=== PATIENT | male | born 1940 | race Caucasian/White ===

== ENCOUNTER 2017-04-14 05:34 | Inpatient (IN) | payer MEDICARE, BC ==
[~2017-04-14] VITALS: Ht 180.3 cm; Wt 64.4 kg
[~2017-04-14 05:34] MED LIST: ALBUTEROL SULFAT4 MG; AMBIEN5 MG PO; AMLODIPINE BESY10 MG PO; ANTIVERT25 MG PO; ATORVASTATIN CA20 MG PO; ATROVENT 0.02%2.5 ML; BROVANA15 MCG/2 M; BUDESONIDE0.5 MG/2 M NEB; CLONIDINE HCL0.1 MG PO; COMBIVENT14.7 GM INH; DILTIAZEM HCL30 MG PO; FERROUS SULFAT325 M1 PO; FLOMAX0.4 MG PO; FLUCONAZOLE100 MG PO; FUROSEMIDE40 MG PO; HYDROCHLOROTHIA25 MG PO; HYDROCODONE-AP1 EACH PO; IPRATROPIU0.2 MG/1 M NEB; LORAZEPAM0.5 MG PO; MACRODANTIN100 MG PO; METOPROLOL SUCC50 MG PO; MS CONTIN15 MG PO; PANTOPRAZOLE SO40 MG PO; POTASSIUM CHLO20 ME1 PO; PREDNISONE5 MG PO; PROAIR HFA INH8.5 GM; RISPERIDONE0.5 MG PO; SINGULAIR10 MG PO; TRAZODONE HCL100 MG PO; TRAZODONE HCL50 MG PO; TYLENOL WITH C1 EACH PO; ULTRAM50 MG PO; VERAPAMIL; Z MORPHINE SULFAT; Z.0.ADVAIR 250-501 E; Z.0.ALBUTEROL0.63 MG INH; Z.0.AZOR 10-40 MG1 E; Z.0.HYDROCHLOROTHIA2 PO; Z.0.LEVAQUIN500 MG; Z.0.LUNESTA3 MG; Z.0.METOPROLOL SUCC5
[2017-04-14] MEDS ORDERED: ALBUTEROL SULF 0.083% NEB SOLN 3 ML NEB NEB STA (05:36)
[2017-04-14] MEDS ORDERED: IPRATROPIUM BROMIDE 0.02% 2.5 ML NEB NEB ONE (05:45)
[2017-04-14] MEDS ORDERED: MIRALAX17 GM PO (05:54)
[2017-04-14] MEDS ORDERED: NORCO 5-325 TA1 EACH PO (05:54)
[2017-04-14 05:58] LABS: BASOPHILS # (AUTO) 0.1 (0.0-0.1); BASOPHILS % 0.9 % (0.0-1.0); EOSINOPHILS # (AUTO) 0.6 (0.0-0.4); EOSINOPHILS % 5.4 % (0.0-6.0); HEMATOCRIT 36.5 % (38.2-49.6); HEMOGLOBIN 11.2 g/dL (14.0-18.0); LYMPHOCYTES # (AUTO) 5.3 (1.0-3.2); MEAN CORPUSCULAR HEMOGLOBIN 26.7 pg (28-32); MEAN CORPUSCULAR HGB CONC 30.7 g/dL (31-35); MEAN CORPUSCULAR VOLUME 86.9 fL (81-99); MONOCYTES # (AUTO) 1.1 (0.2-0.8); MONOCYTES % 9.8 % (4.4-11.3); NEUTROPHILS # (AUTO) 3.9 (2.1-6.9); NEUTROPHILS % 35.7 % (38.7-80.0); PLATELET COUNT 194 x10e3/uL (140-360); RED CELL DISTRIBUTION WIDTH 14.8 % (11.7-14.4)
[2017-04-14 06:14] LABS: ALANINE AMINOTRANSFERASE 12 IU/L (0-55); ALBUMIN 3.4 g/dL (3.5-5.0); ALBUMIN/GLOBULIN RATIO 0.8 (0.8-2.0); ALKALINE PHOSPHATASE 74 IU/L (40-150); BLOOD UREA NITROGEN 20 mg/dL (7-26); BUN/CREATININE RATIO 17 (6-25); CALCIUM 9.3 mg/dL (8.4-10.2); CARBON DIOXIDE 29 mmol/L (22-29); CHLORIDE 100 mmol/L (98-107); CREATINE KINASE 44 IU/L (30-200); CREATININE, SERUM 1.16 mg/dL (0.72-1.25); EST GLOMERULAR FILTRATION RATE > 60 ML/MIN (60-); GLUCOSE 95 mg/dL (74-118); SODIUM 142 mmol/L (136-145)
[2017-04-14 06:22] LABS: TROPONIN I 0.006 ng/mL (0-0.300)
[2017-04-14] MEDS ORDERED: POTASSIUM CHLORIDE 20 MEQ TAB CR PO STA (06:40)
[2017-04-14] MEDS ORDERED: MORPHINE SULFATE 2 MG/ML SYR IV STA (06:49)
--- NOTE | 2017-04-14 06:58 | Diagnostic Imaging Report ---
CHEST SINGLE (PORTABLE), 04/14/2017 5:36 AM Technique: CHEST SINGLE (PORTABLE) Comparison: 11/28/2016 Clinical history: Shortness of breath Findings: Stable portable appearance of the heart, mediastinum, lungs and pleural spaces. Impression: Limited by and portable technique and soft tissue attenuation. No significant interval change. Signed by: Dr Cat Curz MD on 04/14/2017 6:54 AM
[2017-04-14] MEDS: ALBUTEROL/IPRATROPIUM 3 ML NEB NEB SCH ×5 (07:00→23:30)
[2017-04-14] MEDS: BUDESONIDE 0.5MG/2 ML NEB NEB SCH ×2 (07:00→19:25)
[2017-04-14] MEDS ORDERED: SODIUM CHLORIDE FLUSH 10 ML SYR INJ PRN (07:00)
[2017-04-14] MEDS: HYDROCHLOROTHIAZIDE 25 MG TAB PO SCH (07:55)
[2017-04-14] MEDS: METOPROLOL SUCCINATE 50 MG TAB XL PO SCH (07:55)
[2017-04-14] MEDS: FUROSEMIDE 40 MG TAB PO SCH (07:55)
[2017-04-14] MEDS: POTASSIUM CHLORIDE 20 MEQ TAB CR PO SCH (07:55)
[2017-04-14] MEDS: CEFTRIAXONE SOD 1 GM VIAL IV SCH (08:07)
[2017-04-14] MEDS: AZITHROMYCIN 500MG/NS 250 ML 250 ML IV SCH (08:14)
[2017-04-14] MEDS: POLYETHYLENE GLYCOL 3350 17 GM PACK PO SCH (08:15)
[2017-04-14] MEDS ORDERED: AMLODIPINE BESYLATE 10 MG TAB PO SCH (09:00)
[2017-04-14] MEDS: METHYLPREDNISOLONE SOD SUCC 40 MG/ML VIAL IV SCH ×2 (12:00→17:35)
[2017-04-14] MEDS ORDERED: INFLUENZA VIRUS VAC SPLIT INJ 0.5 ML SYR IM ONE (12:45)
[2017-04-14 12:57] VITALS: BP 143/78
[2017-04-14] MEDS: HYDROCODONE/APAP 5MG-325MG TAB PO PRN ×2 (13:49→21:07)
[2017-04-14 16:14] LABS: CREATINE KINASE MB 1.7 ng/mL (0.00-5.00); TROPONIN I 0.007 ng/mL (0-0.300)
[2017-04-14] MEDS ORDERED: INFLUENZA VIRUS VAC SPLIT INJ 0.5 ML SYR IM NR (16:30)
[2017-04-14 16:56] VITALS: BP 144/76
[2017-04-14 20:00] VITALS: BP 148/66
[2017-04-14] MEDS ORDERED: TRAZODONE HCL 50 MG TAB PO SCH (21:30)
[2017-04-14] MEDS: NYSTATIN 15 GM POWDER UD BTL TOP SCH (22:20)
[2017-04-14 23:28] LABS: CREATINE KINASE MB 2.1 ng/mL (0.00-5.00); TROPONIN I 0.003 ng/mL (0-0.300)
[2017-04-14] MEDS: LORAZEPAM 0.5 MG TAB PO PRN (23:57)
[2017-04-15] VITALS: BP_SYST 110; BP_SYST 136; BP_DIAS 53; BP_DIAS 67
[2017-04-15] MEDS: METHYLPREDNISOLONE SOD SUCC 40 MG/ML VIAL IV SCH ×5 (00:19→23:55)
[2017-04-15] MEDS: ALBUTEROL/IPRATROPIUM 3 ML NEB NEB SCH ×6 (03:20→23:55)
--- NOTE | 2017-04-15 03:28 | Consultation ---
DATE OF CONSULTATION: April 14, 2017 PULMONARY MEDICINE CONSULT REFERRING PHYSICIAN: Dr. Willis REASON FOR REFERRAL: COPD with exacerbation. SUBJECTIVE: Mr. Palomares is a pleasant 77-year-old gentleman with COPD. Patient was in his usual state of health when he started experiencing short of breath. No definite sick contact. Patient was having little bit more tightness in his airways. There were also some chest pains. Patient with minor congestion only in the upper airway. symptoms were not readily improving, he elected to come to [facility] for further evaluation. Here in the emergency room, chest x-ray was showing clear lungs. BNP level was normal. Patient was treated as COPD and given antibiotics. He was thereafter admitted. Patient with well known medical history of COPD. He has additional asthmatic phenotype. We recently weaned his prednisone down to 0 mg for last few months. Patient was having bronchodilators at home. He has noninvasive ventilator equipment, home oxygen, and nebulizer. Despite all these interventions, he still came to the hospital. PAST MEDICAL HISTORY: BPH, COPD, rheumatoid arthritis, hypertension, peripheral vascular disease, obstructive sleep apnea, long-term oxygen due to chronic hypoxemia, elevated IgE level, either asthma or other diagnosis, debility, and weakness. MEDICATIONS: Medication list reviewed per electronic record. As stated, is no longer on prednisone at this time. ALLERGIES: NO KNOWN DRUG ALLERGIES. SOCIAL HISTORY: No drinking, no drugs. He smoked from age 13 to 54, two packs per day. 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 FAMILY HISTORY: Noncontributory. REVIEW OF SYSTEMS: GENERAL: No weight changes. OPHTHALMOLOGIC: No double vision. ENDOCRINE: No thyroid disease known. LUNGS: No hemoptysis. CARDIAC: No heart attacks. IMMUNOLOGIC: No lupus known. DERMATOLOGIC: No rashes. MUSCULOSKELETAL: There is some recent arthritis, but no large flare. OBJECTIVE: VITAL SIGNS: Afebrile, vital signs noted per electronic record. GENERAL: In no distress, some shortness of breath noted at rest, but he is able to talk in phrases. HEENT: Normocephalic, atraumatic. NECK: Supple. Throat midline. LUNGS: Bilateral air entry, few rhonchi, rare wheezes and rare rales. CARDIOVASCULAR: S1 and S2. No murmurs, rubs, or gallops. ABDOMEN: Soft, nontender. EXTREMITIES: No clubbing, no cyanosis, there is 1+ edema. INTEGUMENT: No rash, no purpura. LABS: Labs as per record. Albumin 3.4, BNP 102. White count 11, 36 hematocrit. 3.0 potassium, 1.2 creatinine. IMPRESSION AND PLAN: 1. Acute respiratory distress. 2. Chronic obstructive pulmonary disease with exacerbation. 3. Chronic respiratory failure, hypoxic/hypercapnic. 4. Treated as additional asthmatic flare, rule out other. 5. Hypokalemia. 6. Obesity and debility. 7. Lung cancer, awaiting therapy, local. 8. History of rheumatoid arthritis. 9. Pulmonary hypertension secondary to lung disease. 10. Former smoker. 11. Benign prostatic hypertrophy. 12. Peripheral vascular disease. Steroids. Bronchodilators. I will give him sleeping pill. Anxiolytic tablets will be considered. Patient had paperwork submitted to radiation specialist for stereotactic radiation to the lung cancer. However, patient has not started. Will follow up closely. Thank you very much, Dr. Willis for this consult. Please call for questions as I remain available. Job#: [id number]
[2017-04-15 04:33] VITALS: BP 142/63
[2017-04-15] MEDS: HYDROCODONE/APAP 5MG-325MG TAB PO PRN ×3 (06:02→20:18)
[2017-04-15 06:06] LABS: BASOPHILS % 0.1 % (0.0-1.0); HEMATOCRIT 34.3 % (38.2-49.6); HEMOGLOBIN 10.9 g/dL (14.0-18.0); LYMPHOCYTES # (AUTO) 0.9 (1.0-3.2); LYMPHOCYTES % 9.8 % (18.0-39.1); MEAN CORPUSCULAR HEMOGLOBIN 27.3 pg (28-32); MEAN CORPUSCULAR HGB CONC 31.8 g/dL (31-35); MEAN CORPUSCULAR VOLUME 85.8 fL (81-99); MONOCYTES # (AUTO) 0.3 (0.2-0.8); MONOCYTES % 2.7 % (4.4-11.3); NEUTROPHILS # (AUTO) 8.2 (2.1-6.9); NEUTROPHILS % 85.7 % (38.7-80.0); PLATELET COUNT 166 x10e3/uL (140-360); RED CELL DISTRIBUTION WIDTH 14.6 % (11.7-14.4)
[2017-04-15 06:32] LABS: ANION GAP 14.2 mmol/L (8-16); BLOOD UREA NITROGEN 22 mg/dL (7-26); BUN/CREATININE RATIO 24 (6-25); CALCIUM 9.4 mg/dL (8.4-10.2); CARBON DIOXIDE 30 mmol/L (22-29); CHLORIDE 100 mmol/L (98-107); CREATININE, SERUM 0.92 mg/dL (0.72-1.25); EST GLOMERULAR FILTRATION RATE > 60 ML/MIN (60-); GLUCOSE 158 mg/dL (74-118); POTASSIUM 3.2 mmol/L (3.5-5.1); SODIUM 141 mmol/L (136-145)
[2017-04-15] MEDS: AZITHROMYCIN 500MG/NS 250 ML 250 ML IV SCH (07:00)
[2017-04-15] MEDS: CEFTRIAXONE SOD 1 GM VIAL IV SCH (07:00)
[2017-04-15] MEDS ORDERED: SODIUM CHLORIDE 0.9% 250ML 250 ML ONE (07:35)
[2017-04-15] MEDS: BUDESONIDE 0.5MG/2 ML NEB NEB SCH ×2 (07:44→19:35)
[2017-04-15 07:54] VITALS: BP 112/56
[2017-04-15] MEDS: POTASSIUM CHLORIDE 20 MEQ TAB CR PO SCH (09:00)
[2017-04-15] MEDS: POLYETHYLENE GLYCOL 3350 17 GM PACK PO SCH (09:00)
[2017-04-15] MEDS: NYSTATIN 15 GM POWDER UD BTL TOP SCH ×2 (09:00→16:59)
[2017-04-15] MEDS: FUROSEMIDE 40 MG TAB PO SCH (09:00)
[2017-04-15] MEDS: HYDROCHLOROTHIAZIDE 25 MG TAB PO SCH (09:00)
[2017-04-15] MEDS: AMLODIPINE BESYLATE 5 MG TAB PO SCH (09:00)
[2017-04-15] MEDS: METOPROLOL SUCCINATE 50 MG TAB XL PO SCH (09:00)
[2017-04-15] MEDS ORDERED: POTASSIUM CHLORIDE 20 MEQ TAB CR PO ONE ×2 (12:00→18:00)
[2017-04-15 12:11] VITALS: BP 140/66
[2017-04-15] MEDS ORDERED: FUROSEMIDE INJ 10 MG/ML 2 ML VIAL IV ONE (14:00)
[2017-04-15 16:19] VITALS: BP 133/98
--- NOTE | 2017-04-15 17:24 | Progress Note ---
DATE: April 15, 2017 PULMONARY MEDICINE PROGRESS NOTE SUBJECTIVE: Mr. Palomares was seen and examined at bedside. He continues to have a lot of weakness. He is tolerating his diet, however. Breathing slightly better. He was not able to sleep yesterday. REVIEW OF SYSTEMS: No chest pain. No nosebleeds. OBJECTIVE VITAL SIGNS: Afebrile, vital signs noted per electronic record. GENERAL: In no acute distress, but weak sitting up in bed. HEENT: Normocephalic, atraumatic. NECK: Supple. Throat midline. LUNGS: Bilateral air entry, decreased breath sounds moderately, a few rales. CARDIOVASCULAR: S1 and S2. No murmurs, rubs, or gallops. ABDOMEN: Soft, nontender. EXTREMITIES: No clubbing. No cyanosis. There is still 1 to 2+ edema. INTEGUMENT: No rash, no purpura. LABS: 3.2 potassium, BUN 22, 0.9 creatinine, 10 white count, 34 hematocrit. IMPRESSION AND PLAN 1. Chronic obstructive pulmonary disease with exacerbation. 2. Weakness/debility. 3. Lung cancer, localized. 4. Treat as concomitant asthma versus other exacerbation. Noted high IgE level. Continue current treatment at this time. Steroids will be continued IV. Switch it to oral in probably another day. Bronchodilators continue. Continue empiric antibiotics. Mobilize the patient with PT and OT. Follow up blood cultures as 1 blood culture is starting to grow organisms. Job#: [id number]
[2017-04-15 17:41] LABS: MAGNESIUM 1.9 MG/DL (1.3-2.1); POTASSIUM 3.8 mmol/L (3.5-5.1)
[2017-04-15] MEDS: PREGABALIN 50 MG CAP PO SCH (20:17)
[2017-04-15] MEDS: TRAZODONE HCL 50 MG TAB PO SCH (20:17)
[2017-04-15 20:42] VITALS: BP 135/65
[2017-04-16 00:10] VITALS: BP 142/64
[2017-04-16] MEDS: ALBUTEROL/IPRATROPIUM 3 ML NEB NEB SCH ×6 (03:15→20:15)
[2017-04-16 04:23] VITALS: BP 133/61
[2017-04-16] MEDS: METHYLPREDNISOLONE SOD SUCC 40 MG/ML VIAL IV SCH ×4 (05:31→23:36)
[2017-04-16] MEDS: HYDROCODONE/APAP 5MG-325MG TAB PO PRN ×2 (05:33→15:22)
[2017-04-16] MEDS: AZITHROMYCIN 500MG/NS 250 ML 250 ML IV SCH (07:00)
[2017-04-16] MEDS: CEFTRIAXONE SOD 1 GM VIAL IV SCH (07:00)
[2017-04-16] MEDS: BUDESONIDE 0.5MG/2 ML NEB NEB SCH ×2 (07:26→20:15)
[2017-04-16 08:15] VITALS: BP 164/90
[2017-04-16] MEDS: POTASSIUM CHLORIDE 20 MEQ TAB CR PO SCH (09:00)
[2017-04-16] MEDS: POLYETHYLENE GLYCOL 3350 17 GM PACK PO SCH (09:00)
[2017-04-16] MEDS: AMLODIPINE BESYLATE 5 MG TAB PO SCH (09:00)
[2017-04-16] MEDS: METOPROLOL SUCCINATE 50 MG TAB XL PO SCH (09:00)
[2017-04-16] MEDS: FUROSEMIDE 40 MG TAB PO SCH (09:00)
[2017-04-16] MEDS: HYDROCHLOROTHIAZIDE 25 MG TAB PO SCH (09:00)
[2017-04-16] MEDS: NYSTATIN 15 GM POWDER UD BTL TOP SCH ×2 (09:00→16:43)
[2017-04-16] MEDS ORDERED: PREGABALIN 50 MG CAP PO SCH (09:00)
[2017-04-16] MEDS: PREGABALIN 50 MG CAP PO SCH ×3 (09:00→20:53)
[2017-04-16 11:52] VITALS: BP 147/73
--- NOTE | 2017-04-16 15:13 | Progress Note ---
DATE: April 16, 2017 He seems to be getting slightly better. His shortness of breath is better. His cough is better. REVIEW OF SYSTEMS: There is no new. HEENT: Negative. PULMONARY: Negative. CARDIAC: Negative. PHYSICAL EXAMINATION GENERAL: He is alert and oriented. Does not seem to be in acute distress. VITALS: Stable, afebrile. HEENT: Nonicteric. NECK: Supple. CHEST: A few crackles. COR: No murmur. ABDOMEN: Soft. Bowel sounds are present. No tenderness. EXTREMITIES: No edema. IMPRESSION 1. Shortness of breath and cough, bronchitis/early pneumonia in a patient with obesity, chronic obstructive pulmonary disease, congestive heart failure. Continue with the current choice of antibiotic. 2. Bacteremia, coagulase-negative staph contamination. 3. Will follow with you. Job#: [id number]
[2017-04-16 16:03] VITALS: BP 181/79
--- NOTE | 2017-04-16 16:20 | Diagnostic Imaging Report ---
Left knee - 3 views HISTORY: Pain. COMPARISON: None available. FINDINGS: Bones: Postoperative changes of left knee total arthroplasty. The femoral and tibial components are in proper position. No [place] bone or hardware fracture is identified. No expansile lytic or sclerotic lesion. Joints: The joint spaces are well-maintained. No dislocation. Soft tissues: The soft tissues appear unremarkable. IMPRESSION: Left knee total arthroplasty. No acute fracture. Signed by: Dr. Juan M Nicole M.D. on 04/16/2017 4:17 PM
--- NOTE | 2017-04-16 16:22 | Diagnostic Imaging Report ---
Cervical spine, complete. History: Pain. Comparison: None. Discussion: There is normal lordotic curvature of the cervical spine which is visualized on the lateral view from C1 through the top of C5. Degenerative changes are evidenced by anterior osteophytosis at multiple levels. Limited examination. No displaced fracture or dislocation. The vertebral bodies and intervertebral disk spaces are within normal limits. No evidence of lytic or sclerotic lesion. The paravertebral soft tissues are unremarkable. IMPRESSION: No acute radiographic abnormality. Degenerative changes. Signed by: Dr. Juan M Nicole M.D. on 04/16/2017 4:19 PM
--- NOTE | 2017-04-16 16:49 | Progress Note ---
DATE: April 16, 2017 PULMONARY MEDICINE PROGRESS NOTE SUBJECTIVE: Mr. Palomares was seen and examined at bedside. Patient with multiple blood cultures growing positive now. Blood cultures 2 out of 2 with growth. Patient also with additional culture with cristobal. Patient is still with a lot of shortness of breath. He still requires 2 person maximum assist to get up and transport within the room as per staff today. REVIEW OF SYSTEMS: No bleeding. No rash. OBJECTIVE VITAL SIGNS: Afebrile, vital signs noted per electronic record. GENERAL: In no acute distress. Alert, calm and weak. HEENT: Normocephalic, atraumatic. NECK: Supple. Throat midline. LUNGS: Bilateral air entry, a few rhonchi. CARDIOVASCULAR: S1 and S2. No murmurs, rubs, or gallops. ABDOMEN: Soft, nontender. EXTREMITIES: No clubbing. No cyanosis. There is 1 to 2+ edema. INTEGUMENT: No rash, no purpura. IMPRESSION AND PLAN 1. Chronic obstructive pulmonary disease with exacerbation. 2. 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 3. Septicemia. 4. Concomitant asthma syndrome. Will follow up. Patient still with a lot of need for antibiotics and improvement. Will follow along closely. Job#: [id number]
--- NOTE | 2017-04-16 16:53 | Consultation ---
REASON FOR CONSULTATION: Pneumonia. HISTORY OF PRESENT ILLNESS: The patient is a 77-year-old gentleman with history of COPD and obesity, comes in with shortness of breath, not feeling well, apparently he has been sick for a couple of weeks before he came here. No fever or chills, but he felt feverish. The patient came to the emergency room. A chest x-ray was done and showed clear lungs. BNP was normal. He was treated for COPD exacerbation. He was given antibiotics and infectious disease was consulted. When I saw the patient, he is complaining of shortness of breath and dry cough, and his symptoms have gotten progressively worse for the last couple of weeks. PAST MEDICAL HISTORY: Benign prostate hypertrophy, obesity, COPD, rheumatoid arthritis, hypertension, peripheral vascular disease, obstructive sleep apnea, long-term oxygen, and chronic hypoxemia. PAST SURGICAL HISTORY: Denies. ALLERGIES: NKA. SOCIAL HISTORY: There is no smoking, drug abuse, or alcohol abuse. He smoked from age 13 to age 54. REVIEW OF SYSTEMS: HEENT: There is no headache, visual changes, or hearing changes. GI: There is no nausea, no vomiting, and no diarrhea. CARDIAC: There is no arrhythmia. NEUROLOGIC: No seizure activity. SKIN: There is no rash. LABORATORY DATA: Blood cultures grew gram-positive cocci. White count was 9.5, hemoglobin of 10, and hematocrit 34. His sodium 141, potassium 3.2, and creatinine 1.2. Chest x-ray showed limited, no acute infiltrate. PHYSICAL EXAMINATION: GENERAL: He is alert. Apprehensive. Short of breath. VITALS: Stable. No fever. HEENT: Not icteric. NECK: Supple. CHEST: Few crackles bilateral coarse. ABDOMEN: Soft. Bowel sounds present. No tenderness. EXTREMITIES: No edema. SKIN: No rash. IMPRESSION: Acute exacerbation of chronic obstructive pulmonary disease, probably bronchitis. Agree with ceftriaxone and azithromycin. Await culture sensitivity. We will follow with you. Job#: [id number] HERRERA
[2017-04-16] MEDS: TRAZODONE HCL 50 MG TAB PO SCH (20:53)
[2017-04-16 21:20] VITALS: BP 145/69
[2017-04-16] MEDS: DOCUSATE SODIUM 100 MG CAP PO SCH (23:24)
[2017-04-16] MEDS: LORAZEPAM 0.5 MG TAB PO PRN (23:34)
[2017-04-17] MEDS: ALBUTEROL/IPRATROPIUM 3 ML NEB NEB SCH ×6 (00:30→19:00)
[2017-04-17 00:48] VITALS: BP 123/58
[2017-04-17] MEDS: METHYLPREDNISOLONE SOD SUCC 40 MG/ML VIAL IV SCH ×3 (05:43→17:07)
[2017-04-17 06:00] VITALS: BP 184/86
[2017-04-17] MEDS: BUDESONIDE 0.5MG/2 ML NEB NEB SCH ×2 (06:45→19:00)
[2017-04-17] MEDS: CEFTRIAXONE SOD 1 GM VIAL IV SCH (07:09)
[2017-04-17] MEDS: AZITHROMYCIN 500MG/NS 250 ML 250 ML IV SCH (07:09)
[2017-04-17 08:00] VITALS: BP 156/92
[2017-04-17] MEDS: POTASSIUM CHLORIDE 20 MEQ TAB CR PO SCH (08:40)
[2017-04-17] MEDS: DOCUSATE SODIUM 100 MG CAP PO SCH ×2 (08:41→17:07)
[2017-04-17] MEDS: HYDROCHLOROTHIAZIDE 25 MG TAB PO SCH (08:41)
[2017-04-17] MEDS: PREGABALIN 50 MG CAP PO SCH ×3 (08:41→21:00)
[2017-04-17] MEDS: POLYETHYLENE GLYCOL 3350 17 GM PACK PO SCH (08:41)
[2017-04-17] MEDS: AMLODIPINE BESYLATE 5 MG TAB PO SCH (08:41)
[2017-04-17] MEDS: METOPROLOL SUCCINATE 50 MG TAB XL PO SCH (08:42)
[2017-04-17] MEDS ORDERED: DOCUSATE SODIUM 100 MG CAP PO SCH (09:00)
[2017-04-17] MEDS: FUROSEMIDE 40 MG TAB PO SCH (09:05)
[2017-04-17] MEDS: HYDROCODONE/APAP 5MG-325MG TAB PO PRN ×2 (11:21→17:13)
[2017-04-17 12:00] VITALS: BP 162/88
[2017-04-17] MEDS: NYSTATIN 15 GM POWDER UD BTL TOP SCH ×2 (13:18→17:07)
--- NOTE | 2017-04-17 14:52 | Progress Note ---
DATE: April 17, 2017 PULMONARY MEDICINE PROGRESS NOTE SUBJECTIVE: Mr. Palomares was seen and examined at bedside. Slow progress on his breathing. He is still short of breath. He is still having a problem mobilizing. He is still not near his baseline. He is responding and urinating on the Lasix. REVIEW OF SYSTEMS: No headaches, no bleeding. OBJECTIVE VITAL SIGNS: Afebrile. Vital signs noted per electronic record. GENERALLY: No acute distress, alert and calm. HEENT: Normocephalic, atraumatic. NECK: Supple. Throat midline. LUNGS: Bilateral air entry, a few rhonchi, rare wheezes. CARDIOVASCULAR: S1 and S2. No murmurs, rubs or gallops. ABDOMINAL: Soft, nontender. EXTREMITIES: No clubbing, no cyanosis. There is 1 to 2+ edema. INTEGUMENT: No rash. No purpura. IMPRESSION AND PLAN 1. Chronic obstructive pulmonary disease with exacerbation. 2. 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 3. Weakness, debility. 4. Local stage adenocarcinoma of lung. Continue current treatment. Patient remains at this time on steroids. Will consider weaning steroids. Continue bronchodilators. Mobilize with PT and OT. Patient will continue other medicines and diuretics. Job#: [id number] EV
[2017-04-17 16:00] VITALS: BP 167/74
[2017-04-17] MEDS ORDERED: LORAZEPAM INJ 2 MG/ML VIAL IV ONE (16:00)
[2017-04-17 20:00] VITALS: BP 163/77
[2017-04-17] MEDS: TRAZODONE HCL 50 MG TAB PO SCH (21:00)
[2017-04-17] MEDS: LORAZEPAM 0.5 MG TAB PO PRN (23:00)
[2017-04-18] VITALS: BP 121/90
[2017-04-18] MEDS: ALBUTEROL/IPRATROPIUM 3 ML NEB NEB SCH ×6 (03:15→19:00)
[2017-04-18 04:00] VITALS: BP 132/61
[2017-04-18] MEDS: AZITHROMYCIN 500MG/NS 250 ML 250 ML IV SCH (05:53)
[2017-04-18] MEDS: CEFTRIAXONE SOD 1 GM VIAL IV SCH (05:53)
[2017-04-18] MEDS: BUDESONIDE 0.5MG/2 ML NEB NEB SCH ×2 (07:10→19:00)
[2017-04-18 08:00] VITALS: BP 159/73
[2017-04-18] MEDS: PREGABALIN 50 MG CAP PO SCH ×3 (08:20→20:05)
[2017-04-18] MEDS: FUROSEMIDE 40 MG TAB PO SCH (08:20)
[2017-04-18] MEDS: POLYETHYLENE GLYCOL 3350 17 GM PACK PO SCH (08:20)
[2017-04-18] MEDS: AMLODIPINE BESYLATE 5 MG TAB PO SCH (08:21)
[2017-04-18] MEDS: HYDROCHLOROTHIAZIDE 25 MG TAB PO SCH (08:21)
[2017-04-18] MEDS: POTASSIUM CHLORIDE 20 MEQ TAB CR PO SCH (08:21)
[2017-04-18] MEDS: DOCUSATE SODIUM 100 MG CAP PO SCH ×2 (08:21→17:28)
[2017-04-18] MEDS: HYDROCODONE/APAP 5MG-325MG TAB PO PRN (08:22)
[2017-04-18] MEDS: METOPROLOL SUCCINATE 50 MG TAB XL PO SCH (08:22)
[2017-04-18] MEDS: PREDNISONE 20 MG TAB PO SCH (09:00)
[2017-04-18] MEDS: NYSTATIN 15 GM POWDER UD BTL TOP SCH ×2 (11:36→17:28)
[2017-04-18 12:00] VITALS: BP 156/78
--- NOTE | 2017-04-18 13:35 | Progress Note ---
DATE: April 18, 2017 PULMONARY MEDICINE PROGRESS NOTE SUBJECTIVE: Mr. Palomares was seen and examined at bedside. He continues with the current treatment plan. Patient with worse dyspnea today. Patient went for an MRI, but he did not fit in the machine to get MRI of the back done. Patient continues with some secretions that he coughs up with difficulty. REVIEW OF SYSTEMS: No bleeding, no diarrhea. OBJECTIVE VITAL SIGNS: Afebrile. Vital signs noted per electronic record. GENERALLY: No acute distress, alert and calm when at rest. HEENT: Normocephalic, atraumatic. NECK: Supple. Throat midline. LUNGS: Bilateral air entry, moderate air entry, a few rhonchi. CARDIOVASCULAR: S1 and S2. No murmurs, rubs or gallops. ABDOMINAL: Soft, nontender. EXTREMITIES: No clubbing, no cyanosis. There is 1 to 2+ edema. INTEGUMENT: No rash. No purpura. IMPRESSION AND PLAN 1. Local stage adenocarcinoma of the lung. 2. Chronic obstructive pulmonary disease with exacerbation. 3. Concomitant asthma syndrome with exacerbation. 4. Weakness. 5. Fluid overload. Continue diuretics. Follow up as he is hopefully going to respond to steroids. Continue to work with him with PT and OT. We want to check spinal studies and will consider myelogram as patient cannot do MRI. We need to see what it takes to get the patient more able and independent. Also discussed with him about getting a ramp for his home. Job#: [id number] EV
[2017-04-18 16:00] VITALS: BP 161/71
[2017-04-18 20:00] VITALS: BP 172/80
[2017-04-18] MEDS ORDERED: AMLODIPINE BESYLATE 5 MG TAB PO ONE (20:00)
[2017-04-18] MEDS: TRAZODONE HCL 50 MG TAB PO SCH (20:05)
[2017-04-18] MEDS: LORAZEPAM 0.5 MG TAB PO PRN (21:23)
[2017-04-19] VITALS: BP 130/60
[2017-04-19] MEDS: HYDROCODONE/APAP 5MG-325MG TAB PO PRN ×2 (01:18→20:48)
[2017-04-19] MEDS: ALBUTEROL/IPRATROPIUM 3 ML NEB NEB SCH ×7 (03:30→20:00)
[2017-04-19 04:00] VITALS: BP 130/62
[2017-04-19] MEDS: AZITHROMYCIN 500MG/NS 250 ML 250 ML IV SCH (06:13)
[2017-04-19] MEDS: CEFTRIAXONE SOD 1 GM VIAL IV SCH (06:13)
[2017-04-19 08:10] VITALS: BP 134/64
[2017-04-19] MEDS: DOCUSATE SODIUM 100 MG CAP PO SCH ×2 (09:07→17:15)
[2017-04-19] MEDS: HYDROCHLOROTHIAZIDE 25 MG TAB PO SCH (09:07)
[2017-04-19] MEDS: PREDNISONE 20 MG TAB PO SCH (09:08)
[2017-04-19] MEDS: PREGABALIN 50 MG CAP PO SCH ×3 (09:08→20:40)
[2017-04-19] MEDS: METOPROLOL SUCCINATE 50 MG TAB XL PO SCH (09:08)
[2017-04-19] MEDS: FUROSEMIDE 40 MG TAB PO SCH (09:08)
[2017-04-19] MEDS: POLYETHYLENE GLYCOL 3350 17 GM PACK PO SCH (09:08)
[2017-04-19] MEDS: AMLODIPINE BESYLATE 10 MG TAB PO SCH (09:08)
[2017-04-19] MEDS: POTASSIUM CHLORIDE 20 MEQ TAB CR PO SCH (09:08)
[2017-04-19] MEDS: BUDESONIDE 0.5MG/2 ML NEB NEB SCH ×2 (09:08→19:00)
[2017-04-19] MEDS: NYSTATIN 15 GM POWDER UD BTL TOP SCH ×2 (09:09→17:15)
[2017-04-19 11:56] VITALS: BP 151/71
[2017-04-19] MEDS ORDERED: FUROSEMIDE INJ 10 MG/ML 4 ML VIAL IV ONE (13:15)
--- NOTE | 2017-04-19 13:36 | Progress Note ---
DATE: April 19, 2017 PULMONARY MEDICINE PROGRESS NOTE SUBJECTIVE: Mr. Palomares was seen and examined at bedside. He continues to have steady improvement. Patient still with a lot of shortness of breath. He is having shortness of breath that limits his mobility, and he is having trouble just walking to the restroom. This has not gotten better. Patient was able to expectorate some secretions, however. Still his legs are uncharacteristically weak the way he seems them. REVIEW OF SYSTEMS: No headaches, no bleeding. OBJECTIVE VITAL SIGNS: Afebrile. Vital signs noted per electronic record. GENERALLY: No acute distress, alert and calm. HEENT: Normocephalic, atraumatic. NECK: Supple. Throat midline. LUNGS: Bilateral air entry, a few rhonchi. CARDIOVASCULAR: S1 and S2. No murmurs, rubs or gallops. ABDOMINAL: Soft, nontender. EXTREMITIES: No clubbing, no cyanosis. There is trace edema. INTEGUMENT: No rash. No purpura. IMPRESSION AND PLAN 1. Local adenocarcinoma of the lungs. 2. Chronic obstructive pulmonary disease with exacerbation. 3. Concomitant asthma with exacerbation. 4. Weakness. Continue followup with others. There is consideration for myelography. Patient will be continued on steroids and on bronchodilators. Mobilize him with therapy. Will follow closely and check his progress. He will need probably rehab after he gets out of the hospital. Job#: [id number] PAMELLA
[2017-04-19] MEDS: METHYLPREDNISOLONE SOD SUCC 125 MG/2ML VIAL IV SCH ×2 (13:47→21:53)
[2017-04-19] MEDS: THEOPHYLLINE 300 MG TABSR PO SCH (13:47)
--- NOTE | 2017-04-19 13:48 | Diagnostic Imaging Report ---
PROCEDURE: CHEST SINGLE (PORTABLE) 1312 hrs. COMPARISON: Chest x-ray 04/14/17. INDICATIONS: COPD, BRONCHITIS, SHORTNESS OF BREATH FINDINGS: LUNGS: There is a new band of subsegmental atelectasis in the right middle lobe. No consolidation of either lung. No soft tissue mass. The lungs are hyperinflated consistent with history of COPD. The pulmonary vascular markings are normal. PLEURA: No effusions or pneumothorax. HEART \T\ MEDIASTINUM: The heart is top normal in size. Aorta is ectatic with calcifications of the arch. No hilar lymphadenopathy. BONES \T\ SOFT TISSUES: No focal osseous lesions. CONCLUSION: New subsegmental atelectasis in the right middle lobe. No evidence of pulmonary infiltrate Dictated by: Josefina Dixon M.D. on 04/19/2017 at 13:56 Electronically approved by: Josefina Dixon M.D. on 04/19/2017 at 13:56
[2017-04-19 14:53] LABS: ABG HCO3 35 mmol/L (23-28); ABG PCO2 52 mmHg (41-51); ABG PH 7.44 (7.31-7.41); ABG PO2 103 mmHg (80-105)
[2017-04-19 16:15] VITALS: BP 153/72
[2017-04-19 20:00] VITALS: BP 157/72
[2017-04-19] MEDS: TRAZODONE HCL 50 MG TAB PO SCH (20:40)
[2017-04-19] MEDS: LORAZEPAM 0.5 MG TAB PO PRN (20:48)
[2017-04-20] VITALS: BP 129/69
[2017-04-20] MEDS: HYDROCODONE/APAP 5MG-325MG TAB PO PRN ×3 (02:48→14:56)
[2017-04-20] MEDS: ALBUTEROL/IPRATROPIUM 3 ML NEB NEB SCH ×7 (03:00→19:15)
[2017-04-20 04:00] VITALS: BP 141/59
[2017-04-20 06:09] LABS: BASOPHILS % 0.1 % (0.0-1.0); HEMATOCRIT 37.6 % (38.2-49.6); HEMOGLOBIN 11.6 g/dL (14.0-18.0); LYMPHOCYTES # (AUTO) 1.1 (1.0-3.2); MEAN CORPUSCULAR HGB CONC 30.9 g/dL (31-35); MEAN CORPUSCULAR VOLUME 87.6 fL (81-99); MONOCYTES # (AUTO) 0.2 (0.2-0.8); MONOCYTES % 1.7 % (4.4-11.3); NEUTROPHILS % 85.5 % (38.7-80.0); PLATELET COUNT 197 x10e3/uL (140-360); RED BLOOD COUNT 4.29 x10e6/uL (4.3-5.7); RED CELL DISTRIBUTION WIDTH 14.8 % (11.7-14.4)
[2017-04-20] MEDS: CEFTRIAXONE SOD 1 GM VIAL IV SCH (06:17)
[2017-04-20] MEDS: METHYLPREDNISOLONE SOD SUCC 125 MG/2ML VIAL IV SCH (06:17)
[2017-04-20] MEDS: AZITHROMYCIN 500MG/NS 250 ML 250 ML IV SCH (06:17)
[2017-04-20 06:39] LABS: ALANINE AMINOTRANSFERASE 92 IU/L (0-55); ALBUMIN 3.3 g/dL (3.5-5.0); ALBUMIN/GLOBULIN RATIO 0.9 (0.8-2.0); ALKALINE PHOSPHATASE 76 IU/L (40-150); ANION GAP 14.4 mmol/L (8-16); BLOOD UREA NITROGEN 40 mg/dL (7-26); BUN/CREATININE RATIO 41 (6-25); CALCIUM 8.9 mg/dL (8.4-10.2); CARBON DIOXIDE 33 mmol/L (22-29); CHLORIDE 98 mmol/L (98-107); CREATININE, SERUM 0.98 mg/dL (0.72-1.25); EST GLOMERULAR FILTRATION RATE > 60 ML/MIN (60-); GLUCOSE 154 mg/dL (74-118); PHOSPHORUS 3.2 MG/DL (2.3-4.7); POTASSIUM 4.4 mmol/L (3.5-5.1); SODIUM 141 mmol/L (136-145)
[2017-04-20] MEDS: BUDESONIDE 0.5MG/2 ML NEB NEB SCH ×2 (07:00→19:15)
[2017-04-20 08:09] LABS: LYMPHOCYTES % (MANUAL) 5 % (19-48); MONOCYTES % (MANUAL) 4 % (3.4-9.0); MYELOCYTES % (MANUAL) 1 % (0-0); NEUTROPHILS % (MANUAL) 88 % (40-74)
[2017-04-20 08:10] LABS: ANISOCYTOSIS SLIGHT; HOWELL-JOLLY BODIES FEW; PLATELET ESTIMATE ADEQUATE; PLATELET MORPHOLOGY COMMENT NORMAL; RBC MORPHOLOGY COMMENT NORMAL
[2017-04-20 08:18] VITALS: BP 131/74
[2017-04-20] MEDS: HYDROCHLOROTHIAZIDE 25 MG TAB PO SCH (09:10)
[2017-04-20] MEDS: AMLODIPINE BESYLATE 10 MG TAB PO SCH (09:10)
[2017-04-20] MEDS: THEOPHYLLINE 300 MG TABSR PO SCH (09:10)
[2017-04-20] MEDS: DOCUSATE SODIUM 100 MG CAP PO SCH ×2 (09:10→17:38)
[2017-04-20] MEDS: PREGABALIN 50 MG CAP PO SCH ×2 (09:10→14:56)
[2017-04-20] MEDS: POLYETHYLENE GLYCOL 3350 17 GM PACK PO SCH (09:10)
[2017-04-20] MEDS: METOPROLOL SUCCINATE 50 MG TAB XL PO SCH (09:11)
[2017-04-20] MEDS: POTASSIUM CHLORIDE 20 MEQ TAB CR PO SCH (09:11)
[2017-04-20] MEDS: NYSTATIN 15 GM POWDER UD BTL TOP SCH ×2 (09:11→17:38)
[2017-04-20] MEDS: FUROSEMIDE 40 MG TAB PO SCH (09:11)
[2017-04-20 12:53] VITALS: BP 151/79
[2017-04-20 17:10] VITALS: BP 142/67
--- NOTE | 2017-04-21 00:36 | Progress Note ---
DATE: April 20, 2017 PULMONARY MEDICINE PROGRESS NOTE SUBJECTIVE: Mr. Palomares was seen and examined at bedside. He continues to have a lot of shortness of breath. However, he is better from yesterday. Yesterday, his episode resolved after he got on the BiPAP for assistance. Patient also got a boost of steroids, which also helped. Today, he is eating better. REVIEW OF SYSTEMS: No headaches. No rash. OBJECTIVE VITALS: Afebrile. Vital signs noted per electronic record. GENERAL: In no acute distress. Alert and calm. HEENT: Normocephalic and atraumatic. NECK: Supple. Throat midline. LUNGS: Bilateral air entry. Few rhonchi. Mild wheezes. CARDIOVASCULAR: S1 and S2. No murmurs, rubs or gallops. ABDOMEN: Soft and nontender. EXTREMITIES: No clubbing. No cyanosis. There is 1-2+ edema. INTEGUMENT: No rash. No purpura. LABS: Potassium 4.4, creatinine 0.98. White count 12, hematocrit 37. IMPRESSION AND PLAN 1. Acute respiratory failure, resolved. 2. Chronic respiratory failure. 3. Chronic hypoxemia. 4. Chronic obstructive pulmonary disease with exacerbation. 5. Concomitant asthma with exacerbation. 6. Weakness. 7. Local stage adenocarcinoma of the lung. Continue current treatment. Patient needs to continue the BiPAP intermittently. Continue antibiotics. Steroids. The steroids will be weaned a little bit today. Bronchodilators continued. Will follow along closely. He remains in very guarded condition. Job#: [id number] DEMETRIUS
[2017-04-21] MEDS ORDERED: PREDNISONE 20 MG TAB PO SCH (09:00)
--- NOTE | 2017-05-21 19:00 | Discharge Summary ---
CHIEF COMPLAINT: Bronchitis and COPD with exacerbation. FINAL DIAGNOSES 1. Exacerbation of chronic obstructive pulmonary disease. 2. Questionable sepsis. 3. Lung cancer. DISPOSITION: [facility]. A 77-year-old male with known history of COPD, hypertension, atrial fib, lung CA, brought to the ER with a 1-week history of increasing shortness of breath, wheezing and congestion despite 6-8 weeks of treatment. Had breathing treatments daily with constant O2 supplement. Was having no other complaints. Issues with shortness of breath and dyspnea upon exertion. The patient was reviewed extensively in the emergency room. X-rays and labs were performed. Chest was demonstrating diffuse inspiratory crackles and expiratory wheezes. Abdomen was showing evidence of being obese. Lower extremities were showing trace edema. From the ER, the patient was admitted to the facility for evaluation and care regarding exacerbation of COPD, lung CA, debility, hypertension, questionable pneumonia. Will continue the nebulizer treatments. Will begin IV steroids, IV antibiotics and supplemental O2. Once on the floor, the patient was being reviewed by respiratory, i.e. Dr. Montiel, with the issues of COPD with exacerbation. Following his review, his impression was acute respiratory distress, chronic obstructive pulmonary disease with exacerbation, chronic respiratory failure, hypoxic and hypercapnic, treated as additional asthmatic flare, hypokalemia, obesity, debility, and lung cancer. Awaiting therapy. History of rheumatoid arthritis, pulmonary hypertension secondary to lung disease, former smoker, BPH, peripheral vascular disease. Agree with the steroids and the bronchodilators. Has had paperwork to undergo stereotactic radiation, but has not started yet. Issues with concern for pneumonia were being addressed by infectious disease, Dr. White. His findings revealed acute exacerbation of chronic obstructive pulmonary disease, probably bronchitis. Agree with the antibiotic choice. The patient was on the med/surg floor. Vital signs were stable. Was receiving respiratory treatments. Started on azithromycin 250 mg IV q.24 h., ceftriaxone 1 g IV q.24 h., methylprednisolone 40 mg IV q.6 h., and on IV fluids. Daily meds were continuing. Laboratory studies were showing a potassium to be at 3.2, CO2 was at 30. Kidney function showing a BUN of 22, creatinine 0.92 and glucose 158. CBC: Hemoglobin 10.9 with a white cell count of 9500. Patient was having issues of shortness of breath as his stay was progressing. His medications were continuing. Respiratory treatments were continuing. Repeat potassium was 3.8. Blood cultures were becoming positive. Dr. White felt that this was likely a contaminate issue. Continued to have elevated CO2 at 30. Consideration was made to wean the patient off the steroids, but continue the bronchodilators per Dr. Montiel. There were some issues with constant complaints of pain in the neck with numbness and weakness. Unfortunately, the patient was unable to undergo an MRI due to the patient's body habitus. Discussions were made for a neurosurgical consult. May need a CT. The patient was then placed on BiPAP regarding his respiratory state. Was noted to have steady improvement. However, still has a lot of shortness of breath, which limits his mobility. Patient will be requiring further care. Further CO2s were noted to be elevated at 33. White cell count had risen to 11,700. This could be exacerbated by the steroids that the patient was on. The need for continued care was addressed. With case management assistance, the patient was able to be transferred to [facility] on April 20, 2017, in stable condition. EKGs are showing atrial fib and low voltage QRS. At [facility], the patient will continue on his current MARs. Will continue to receive his respiratory treatments and his BiPAP. I will continue to monitor his progress at that facility on a daily basis. Will continue to have Dr. White and Dr. Montiel continue as the consultants. DICTATED BY RUPA JO Job#: [id number] DEMETRIUS
== END 2017-04-20 20:15 | DRG 190 ==
LOC: ER 05:34 → ERHOLD 08:07 → MED/SURG2 10:35 → IMCU 04-19 17:57
DX: J44.0 Chronic obstructive pulmonary disease with (acute) lower respiratory infection (principal); J18.9 Pneumonia, unspecified organism; J96.21 Acute and chronic respiratory failure with hypoxia; A41.9 Sepsis, unspecified organism; Z99.81 Dependence on supplemental oxygen; Z68.41 Body mass index [BMI] 40.0-44.9, adult; J45.901 Unspecified asthma with (acute) exacerbation; C34.90 Malignant neoplasm of unspecified part of unspecified bronchus or lung; M06.9 Rheumatoid arthritis, unspecified; I48.2 Chronic atrial fibrillation; E66.01 Morbid (severe) obesity due to excess calories; J96.22 Acute and chronic respiratory failure with hypercapnia; Z68.1 Body mass index [BMI] 19.9 or less, adult; J44.1 Chronic obstructive pulmonary disease with (acute) exacerbation; E66.9 Obesity, unspecified; D09.9 Carcinoma in situ, unspecified; G47.33 Obstructive sleep apnea (adult) (pediatric); N40.0 Benign prostatic hyperplasia without lower urinary tract symptoms; I73.9 Peripheral vascular disease, unspecified; E87.6 Hypokalemia; Z79.01 Long term (current) use of anticoagulants; B96.4 Proteus (mirabilis) (morganii) as the cause of diseases classified elsewhere
CPT/HCPCS: 36415; 36600; 71010; 72050; 80048; 80053; 82550; 82553; 82805; 83735; 83880; 84100; 84132; 84484; 85025; 87040; 87070; 87071; 87086; 87186; 87205; 93005; 94660; 96376; 97139; 99284; J0456; J0696; J1940; J2920; J2930; J7050

== ENCOUNTER 2017-05-27 13:57 | Inpatient (IN) | payer MEDICARE, BC ==
[~2017-05-27] VITALS: Ht 180.3 cm; Wt 157.7 kg
[~2017-05-27 13:57] MED LIST changes: +MIRALAX17 GM PO; +NORCO 5-325 TA1 EACH PO
[2017-05-27] MEDS ORDERED: METHYLPREDNISOLONE SOD SUCC 125 MG/2ML VIAL IV ONE (15:00)
[2017-05-27] MEDS ORDERED: ALBUTEROL SULF 0.083% NEB SOLN 3 ML NEB NEB STA ×2 (15:01→20:05)
[2017-05-27] MEDS ORDERED: IPRATROPIUM BROMIDE 0.02% 2.5 ML NEB NEB ONE ×3 (15:15→20:30)
[2017-05-27 15:22] LABS: KETONES,URINE NEGATIVE (NEGATIVE); LEUKOCYTE ESTERASE ,URINE NEGATIVE (NEGATIVE); URINE UROBILINOGEN 8 mg/dL (0.2 - 1)
--- NOTE | 2017-05-27 15:24 | Diagnostic Imaging Report ---
EXAMINATION: CHEST SINGLE (PORTABLE) INDICATION: \S\ERMD ORDER \S\[id number] \S\1440 \S\Y COMPARISON: Chest radiograph from 04/19/2017 FINDINGS: AP view TUBES and LINES: None. LUNGS: Lungs are well inflated. Lungs are clear. Bilateral interstitial edema. PLEURA: No pleural effusion or pneumothorax. HEART AND MEDIASTINUM: Mild enlargement of the cardiac silhouette. Tortuous thoracic aorta. BONES AND SOFT TISSUES: No acute osseous lesion. Soft tissues are unremarkable. UPPER ABDOMEN: No free air under the diaphragm. IMPRESSION: Bilateral interstitial edema. Signed by: Dr. Bridget Diaz M.D. on 05/27/2017 3:21 PM
[2017-05-27 15:30] LABS: BILIRUBIN,URINE 3+ (NEGATIVE); CLARITY,URINE CLEAR (CLEAR); COLOR,URINE ORANGE (YELLOW); NITRITE,URINE POSITIVE (NEGATIVE); PROTEIN,URINE DIPSTICK 1+ (NEGATIVE)
[2017-05-27 16:06] LABS: RBC,URINE 0-5 /HPF (0-5); WBC,URINE (MAN) 0-5 /HPF (0-5)
[2017-05-27 16:07] LABS: BACTERIA,URINE FEW /HPF; EPITHELIAL CELLS,URINE FEW /LPF
[2017-05-27 16:18] LABS: ALANINE AMINOTRANSFERASE 34 IU/L (0-55); ALBUMIN 3.7 g/dL (3.5-5.0); ALKALINE PHOSPHATASE 60 IU/L (40-150); ANION GAP 17.4 mmol/L (8-16); BLOOD UREA NITROGEN 38 mg/dL (7-26); BUN/CREATININE RATIO 46 (6-25); CALCIUM 8.9 mg/dL (8.4-10.2); CARBON DIOXIDE 33 mmol/L (22-29); CHLORIDE 98 mmol/L (98-107); CREATINE KINASE 37 IU/L (30-200); CREATININE, SERUM 0.82 mg/dL (0.72-1.25); EST GLOMERULAR FILTRATION RATE > 60 ML/MIN (60-); GLUCOSE 81 mg/dL (74-118); POTASSIUM 5.4 mmol/L (3.5-5.1); SODIUM 143 mmol/L (136-145)
[2017-05-27 18:11] LABS: BASOPHILS % 0.1 % (0.0-1.0); EOSINOPHILS % 0.1 % (0.0-6.0); HEMATOCRIT 40.6 % (38.2-49.6); HEMOGLOBIN 12.4 g/dL (14.0-18.0); LYMPHOCYTES # (AUTO) 1.1 (1.0-3.2); LYMPHOCYTES % 6.7 % (18.0-39.1); MEAN CORPUSCULAR HEMOGLOBIN 28.1 pg (28-32); MEAN CORPUSCULAR HGB CONC 30.5 g/dL (31-35); MEAN CORPUSCULAR VOLUME 92.1 fL (81-99); MONOCYTES # (AUTO) 0.9 (0.2-0.8); MONOCYTES % 5.2 % (4.4-11.3); NEUTROPHILS # (AUTO) 14.7 (2.1-6.9); NEUTROPHILS % 86.8 % (38.7-80.0); PLATELET COUNT 176 x10e3/uL (140-360); RED BLOOD COUNT 4.41 x10e6/uL (4.3-5.7); RED CELL DISTRIBUTION WIDTH 16.9 % (11.7-14.4)
--- NOTE | 2017-05-27 19:31 | Diagnostic Imaging Report ---
EXAM: CT CHEST W DATE: 05/27/2017 2:27 PM INDICATION: \S\concern for PE, PMH: lung CA, SOB, , Tachycardia COMPARISON: 11/22/2016 TECHNIQUE: Multidetector CT scanning of the chest was performed. Coronal and sagittal multiplanar reformations were obtained. IV Contrast: 100 mL of Isovue-370 FINDINGS: Image quality is degraded by body habitus and motion artifact. Suboptimal contrast opacification of the pulmonary arterial system (HU 145) precludes evaluation for the exclusion of pulmonary embolism. Given this, no central/large main filling defect is seen. LUNGS AND PLEURA: Increased spiculated left upper lobe nodule, 2.0 x 1.7 cm (prior 1.5 x 1.2 cm). No effusion or pneumothorax. HEART, MEDIASTINUM, VESSELS: Stable heart size with coronary artery and aortic atherosclerotic disease. The main pulmonary artery is again enlarged, 3.7 cm. Increasing left mediastinal (AP window, prevascular) and hilar adenopathy. For example a prevascular node measures 2 cm, prior 0.7 cm, AP window node 1.5 cm, prior 1 cm, and left hilar node 1.2 cm, prior 0.7 cm. UPPER ABDOMEN: Grossly unremarkable MUSCULOSKELETAL: No suspicious bone lesions. IMPRESSION: 1. Suboptimal contrast bolus precludes evaluation for exclusion of pulmonary artery embolism. No large central/main pulmonary embolism is seen. 2. Increasing left upper lobe regulated lung nodule in keeping with known malignancy. 3. Increasing metastatic left mediastinal/hilar adenopathy. Signed by: Dr Cat Cruz MD on 05/27/2017 7:28 PM
[2017-05-27] MEDS ORDERED: ALBUTEROL/IPRATROPIUM 3 ML NEB NEB PRN (20:00)
[2017-05-27] MEDS ORDERED: ONDANSETRON HCL INJ 2 MG/ML VIAL IV STA (20:03)
[2017-05-27] MEDS ORDERED: HYDROCODONE/APAP 7.5MG-325MG 1 EA TAB PO STA (20:03)
[2017-05-27] MEDS ORDERED: MORPHINE SULFATE 2 MG/ML SYR IV STA (20:03)
[2017-05-27] MEDS ORDERED: MORPHINE SULFATE INJ 4 MG/ML INJ ONE (20:19)
[2017-05-27] MEDS ORDERED: IPRATROPIUM BROMIDE 0.02% 2.5 ML NEB ONE (20:20)
[2017-05-27] MEDS ORDERED: BUDESONIDE0.5 MG/2 M NEB (20:21)
[2017-05-27] MEDS ORDERED: LASIX40 MG PO (20:21)
[2017-05-27] MEDS ORDERED: NORVASC5 MG PO (20:21)
[2017-05-27] MEDS ORDERED: TOPROL XL50 MG PO (20:22)
[2017-05-27] MEDS ORDERED: KLOR-CON M1010 MEQ PO (20:22)
[2017-05-27] MEDS ORDERED: THEOPHYLLINE A200 MG PO (20:23)
[2017-05-27] MEDS ORDERED: TRAZODONE HCL100 MG PO (20:23)
[2017-05-27] MEDS ORDERED: ELIQUIS PO (20:24)
[2017-05-27] MEDS ORDERED: LYRICA75 MG PO (20:25)
[2017-05-27] MEDS ORDERED: BROVANA15 MCG/2 M INH (20:25)
[2017-05-27] MEDS ORDERED: IPRATROPIU0.2 MG/1 M NEB (20:26)
[2017-05-27 20:27] LABS: BLOOD UREA NITROGEN 37 mg/dL (7-26); BUN/CREATININE RATIO 45 (6-25); CALCIUM 8.7 mg/dL (8.4-10.2); CARBON DIOXIDE 32 mmol/L (22-29); CHLORIDE 96 mmol/L (98-107); CREATININE, SERUM 0.83 mg/dL (0.72-1.25); EST GLOMERULAR FILTRATION RATE > 60 ML/MIN (60-); GLUCOSE 197 mg/dL (74-118); SODIUM 140 mmol/L (136-145)
[2017-05-27] MEDS ORDERED: SERTRALINE HCL25 MG PO (20:27)
[2017-05-27] MEDS ORDERED: ATIVAN0.5 MG PO (20:27)
[2017-05-27] MEDS ORDERED: PREDNISONE10 MG PO (20:28)
[2017-05-27] MEDS ORDERED: APIXAB 2.5 MG TABLET PO SCH (20:30)
[2017-05-27] MEDS: LEVOFLOXACIN 500MG/D5W 100ML 100 ML IV SCH (20:42)
[2017-05-27 21:02] LABS: INR 1.09; PROTHROMBIN TIME 14.7 seconds (11.9-14.5)
[2017-05-27 21:31] LABS: CREATINE KINASE MB 1.8 ng/mL (0.00-5.00)
[2017-05-27] MEDS: METHYLPREDNISOLONE SOD SUCC 125 MG/2ML VIAL IV SCH (22:01)
[2017-05-27 22:15] VITALS: BP 119/54
[2017-05-27] MEDS: IPRATROPIUM BROMIDE 0.02% 2.5 ML NEB NEB SCH (23:35)
[2017-05-28] VITALS (7 sets, daily range): BP systolic 119–169; BP diastolic 54–74
[2017-05-28] MEDS: LORAZEPAM 0.5 MG TAB PO PRN ×4 (00:27→21:50)
[2017-05-28] MEDS ORDERED: APIXAB 2.5 MG TABLET PO SCH ×2 (00:30→09:00)
[2017-05-28] MEDS: HYDROCODONE/APAP 7.5MG-325MG 1 EA TAB PO PRN ×3 (01:18→23:45)
[2017-05-28] MEDS: ALBUTEROL SULF 0.083% NEB SOLN 3 ML NEB NEB SCH ×6 (03:32→20:15)
[2017-05-28] MEDS: IPRATROPIUM BROMIDE 0.02% 2.5 ML NEB NEB SCH ×5 (03:32→20:15)
[2017-05-28] MEDS ORDERED: IOPAMIDOL 370 MG/ML 200 ML INFUS..BTL INJ ONE (05:21)
[2017-05-28] MEDS ORDERED: SODIUM CHLORIDE 0.9% 50ML 50 ML ONE (05:21)
[2017-05-28] MEDS: METHYLPREDNISOLONE SOD SUCC 125 MG/2ML VIAL IV SCH ×3 (05:28→21:21)
[2017-05-28 07:08] LABS: BASOPHILS % 0.2 % (0.0-1.0); HEMOGLOBIN 11.9 g/dL (14.0-18.0); LYMPHOCYTES # (AUTO) 0.3 (1.0-3.2); LYMPHOCYTES % 2.8 % (18.0-39.1); MEAN CORPUSCULAR HEMOGLOBIN 27.9 pg (28-32); MEAN CORPUSCULAR HGB CONC 31.3 g/dL (31-35); MONOCYTES # (AUTO) 0.2 (0.2-0.8); NEUTROPHILS # (AUTO) 9.6 (2.1-6.9); NEUTROPHILS % 91.8 % (38.7-80.0); PLATELET COUNT 177 x10e3/uL (140-360); RED BLOOD COUNT 4.27 x10e6/uL (4.3-5.7); RED CELL DISTRIBUTION WIDTH 17.4 % (11.7-14.4)
[2017-05-28 07:22] LABS: ALANINE AMINOTRANSFERASE 29 IU/L (0-55); ALBUMIN 3.6 g/dL (3.5-5.0); ALBUMIN/GLOBULIN RATIO 1.2 (0.8-2.0); ALKALINE PHOSPHATASE 63 IU/L (40-150); ANION GAP 14.4 mmol/L (8-16); BLOOD UREA NITROGEN 36 mg/dL (7-26); BUN/CREATININE RATIO 42 (6-25); CALCIUM 8.8 mg/dL (8.4-10.2); CARBON DIOXIDE 31 mmol/L (22-29); CHLORIDE 96 mmol/L (98-107); CREATININE, SERUM 0.86 mg/dL (0.72-1.25); EST GLOMERULAR FILTRATION RATE > 60 ML/MIN (60-); GLUCOSE 184 mg/dL (74-118); MAGNESIUM 2.4 MG/DL (1.3-2.1); POTASSIUM 4.4 mmol/L (3.5-5.1); SODIUM 137 mmol/L (136-145)
[2017-05-28 07:45] LABS: CREATINE KINASE MB 2.3 ng/mL (0.00-5.00)
[2017-05-28] MEDS ORDERED: CLONIDINE HCL 0.2 MG TAB PO PRN (08:15)
[2017-05-28] MEDS ORDERED: PREDNISONE 10 MG TAB PO SCH (09:00)
[2017-05-28] MEDS: POTASSIUM CHLORIDE 10 MEQ TABCR PO SCH (09:00)
[2017-05-28] MEDS: AMLODIPINE BESYLATE 10 MG TAB PO SCH ×2 (09:39→17:07)
[2017-05-28] MEDS: PREGABALIN 75 MG CAP PO SCH ×2 (09:39→20:50)
[2017-05-28] MEDS: LEVOFLOXACIN 500MG/D5W 100ML 100 ML IV SCH (09:39)
[2017-05-28] MEDS: FUROSEMIDE 40 MG TAB PO SCH ×2 (09:39→17:06)
[2017-05-28] MEDS: APIXAB 2.5 MG TABLET PO SCH ×2 (09:39→17:06)
[2017-05-28] MEDS: SERTRALINE HCL 50 MG TAB PO SCH (09:40)
[2017-05-28] MEDS: METOPROLOL SUCCINATE 25 MG TAB XL PO SCH (09:40)
[2017-05-28] MEDS: ARFORMOTEROL TARTRATE INH SCH ×2 (12:00→17:07)
[2017-05-28 12:28] LABS: BAND NEUTROPHILS % (MANUAL) 11 %; LYMPHOCYTES % (MANUAL) 4 % (19-48); MONOCYTES % (MANUAL) 2 % (3.4-9.0); NEUTROPHILS % (MANUAL) 83 % (40-74); PLATELET ESTIMATE ADEQUATE; PLATELET MORPHOLOGY COMMENT NORMAL; RBC MORPHOLOGY COMMENT NORMAL
[2017-05-28] MEDS ORDERED: NYSTATIN 15 GM POWDER UD BTL TOP PRN (14:00)
[2017-05-28] MEDS: THEOPHYLLINE 200 MG TABCR PO SCH (14:36)
[2017-05-28] MEDS: BUDESONIDE 0.5MG/2 ML NEB NEB SCH (20:15)
[2017-05-28] MEDS: TRAZODONE HCL 50 MG TAB PO SCH (21:21)
[2017-05-29] MEDS: IPRATROPIUM BROMIDE 0.02% 2.5 ML NEB NEB SCH ×6 (00:30→23:35)
[2017-05-29] MEDS: ALBUTEROL SULF 0.083% NEB SOLN 3 ML NEB NEB SCH ×6 (00:30→23:35)
[2017-05-29 01:45] VITALS: BP 156/84
--- NOTE | 2017-05-29 03:42 | Consultation ---
DATE OF CONSULTATION: May 28, 2017 PULMONARY/CRITICAL CARE MEDICINE CONSULT REASON FOR REFERRAL: COPD. HISTORY: Mr. Palomares is a pleasant 77-year-old gentleman with shortness of breath. Patient with baseline COPD. He had recently performed a course of rehabilitation. However, he was only walking about 10 feet, he tells me, at baseline. He uses a walker normally. He experienced increased shortness of breath. Patient took initial breathing medication, but it did not resolve his condition. He came to the emergency room. In the emergency room, patient given routine treatment for COPD. There was some , but he still remains very debilitated and short of breath. It was elected to admit him to the hospital this time. Patient had CT angiography in the emergency room, which showed no PE, although it was slightly suboptimal in its protocol, but there was also increasing left upper lobe nodule of the lung and also increasing left mediastinal and hilar lymphadenopathy. PAST MEDICAL HISTORY: BPH, COPD, rheumatoid arthritis, hypertension, peripheral vascular disease, BRITTANY, long-term oxygen use due to chronic hypoxemia, elevated IgE level, which is either asthma versus other diagnosis, debility and weakness, lung cancer. MEDICATIONS: Medication list reviewed per electronic records. Currently, his medications also include Levaquin, apixaban, and steroids among other medications. ALLERGIES: NO KNOWN DRUG ALLERGIES. SOCIAL HISTORY: No drinking, no drugs. He smoked from age 13 to 54, two packs per day. 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 FAMILY HISTORY: Noncontributory. REVIEW OF SYSTEMS GENERAL: No weight changes. OPHTHALMOLOGIC: No double vision. ENDOCRINE: No thyroid disease. LUNGS: No hemoptysis. CARDIAC: No heart attacks. IMMUNOLOGIC: No known lupus. DERMATOLOGIC: No rashes. MUSCULOSKELETAL: No large flares. NEUROLOGIC: No seizures. PSYCHIATRIC: There is some anxiety and depression level. OBJECTIVE VITAL SIGNS: Afebrile, vital signs noted per electronic record. GENERAL: No acute distress, although he is very anxious and gets winded very easily on talking sentences. HEENT: Normocephalic, atraumatic. NECK: Supple. Throat midline. LUNGS: Bilateral air entry. No wheezes. A few rhonchi. No crackles. CARDIOVASCULAR: S1, S2. No murmurs, rubs or gallops. ABDOMINAL: Soft, nontender. EXTREMITIES: No clubbing, no cyanosis. There is 1+ edema to legs. INTEGUMENT: No rash, no purpura. LABS: 10 white count, 38 hematocrit, 177,000 platelets, 4.4 potassium, 36 BUN, 0.9 creatinine. IMPRESSIONS AND PLAN 1. Chronic obstructive pulmonary disease with exacerbation. 2. There is additional asthma versus asthma-like condition with exacerbation. 3. Lung cancer, progressively spreading now with lymph node involvement. 4. Debility and weakness. 5. Rheumatoid arthritis. 6. Chronic respiratory failure on home noninvasive ventilation. 7. Obstructive sleep apnea. At this time, will continue steroids. Bronchodilators. Theophylline. Check a theophylline level. Will get licensed clinical social worker involved for [facility] pay for him to get radiation therapy. Will follow along closely. Patient guarded condition. Job#: [id number] CQ
[2017-05-29 05:18] VITALS: BP 143/75
[2017-05-29] MEDS: METHYLPREDNISOLONE SOD SUCC 125 MG/2ML VIAL IV SCH ×3 (05:26→21:06)
[2017-05-29] MEDS: ARFORMOTEROL TARTRATE INH SCH ×3 (06:00→17:05)
[2017-05-29] MEDS: BUDESONIDE 0.5MG/2 ML NEB NEB SCH ×2 (07:00→19:35)
[2017-05-29 07:03] LABS: ANION GAP 13.5 mmol/L (8-16); BLOOD UREA NITROGEN 30 mg/dL (7-26); BUN/CREATININE RATIO 40 (6-25); CALCIUM 8.3 mg/dL (8.4-10.2); CARBON DIOXIDE 34 mmol/L (22-29); CHLORIDE 95 mmol/L (98-107); CREATININE, SERUM 0.75 mg/dL (0.72-1.25); EST GLOMERULAR FILTRATION RATE > 60 ML/MIN (60-); GLUCOSE 191 mg/dL (74-118); POTASSIUM 3.5 mmol/L (3.5-5.1); SODIUM 139 mmol/L (136-145)
[2017-05-29 08:00] VITALS: BP 146/87
[2017-05-29] MEDS: LEVOFLOXACIN 500MG/D5W 100ML 100 ML IV SCH (08:28)
[2017-05-29] MEDS: APIXAB 2.5 MG TABLET PO SCH ×2 (08:28→17:04)
[2017-05-29] MEDS: PREGABALIN 75 MG CAP PO SCH ×2 (08:28→21:06)
[2017-05-29] MEDS: AMLODIPINE BESYLATE 10 MG TAB PO SCH ×2 (08:29→17:04)
[2017-05-29] MEDS: POTASSIUM CHLORIDE 10 MEQ TABCR PO SCH (08:29)
[2017-05-29] MEDS: METOPROLOL SUCCINATE 25 MG TAB XL PO SCH (08:29)
[2017-05-29] MEDS: FUROSEMIDE 40 MG TAB PO SCH ×2 (08:29→17:04)
[2017-05-29] MEDS: THEOPHYLLINE 200 MG TABCR PO SCH (08:29)
[2017-05-29] MEDS: SERTRALINE HCL 50 MG TAB PO SCH (08:30)
--- NOTE | 2017-05-29 10:39 | History and Physical ---
A 69-year-old male with a past medical history positive for COPD, hypertension, chronic atrial fibrillation, lung cancer, obesity, came here with increasing episode of shortness of breath. He was found to have COPD exacerbation. REVIEW OF SYSTEMS CARDIOVASCULAR: No chest pain or palpitations. RESPIRATORY: He does have shortness of breath on exertion. No cough. No phlegm. GASTROINTESTINAL: No nausea, vomiting or diarrhea. GENITOURINARY: No frequency or dysuria. ALLERGIES: HE IS NOT ALLERGIC TO ANYTHING. PAST MEDICAL HISTORY: COPD, lung cancer, hypertension, chronic atrial fibrillation, obesity. SOCIAL HISTORY: He claims that he does not smoke. He does not drink. PHYSICAL EXAMINATION VITALS: Blood pressure 169/74, temperature 96.4, heart rate 107 per minute, respiratory rate 20 per minute, oxygen pressure 100%. HEART: Showed irregularly irregular heart rate. Normal S1 and S2 sounds. LUNGS: Bilateral wheezing. ABDOMEN: Soft. EXTREMITIES: Show no evidence of cyanosis or trauma. BLOOD WORK: We have a BMP with sodium 137, potassium 4.4, chloride 96, CO2 31, BUN 36, creatinine 0.86. On the CBC, white blood count 10.4, hemoglobin 11.9, hematocrit 38, and platelet count 177,000. PT 14.7, PTT 22 and INR 1.09. AST 19, ALT 29, total bilirubin 0.9, alkaline phosphatase 63. CT of the chest did not show any evidence of pulmonary embolism or infiltrates. He has lung nodules. FINAL IMPRESSION 1. Chronic obstructive pulmonary disease exacerbation. 2. Acute renal failure. 3. Uncontrolled hypertension. 4. Chronic atrial fibrillation. 5. Lung cancer. 6. Obesity. PLAN OF TREATMENT: Continue albuterol and Atrovent q.4 h. Continue budesonide 1 inhalation twice a day. Continue Eliquis 2.5 mg twice a day. Solu-Medrol 60 mg IV every 8 hours. Continue metoprolol 75 mg daily. Eliquis 2.5 mg twice a day. Levaquin 500 mg IV daily. Red House 1 tablet q.6 h. as needed. Lyrica 150 mg twice a day. Trazodone 100 mg at bedtime. Amlodipine 10 mg daily. Budesonide 1 inhalation twice a day. Theophylline 400 mg daily. Zoloft 25 mg daily. Furosemide 40 mg twice a day. Clonidine 0.2 mg q.4 h. as needed. Potassium chloride [address] Montiel has been consulted from the pulmonary point of view. Job#: [id number] RI
[2017-05-29] MEDS ORDERED: POTASSIUM CHLORIDE 20 MEQ TAB CR PO NR (10:45)
[2017-05-29 12:00] VITALS: BP 119/59
--- NOTE | 2017-05-29 13:57 | Progress Note ---
DATE: May 29, 2017 PULMONARY MEDICINE PROGRESS NOTE SUBJECTIVE: Mr. Palomares was seen and examined at bedside. He continues to have difficulty. Some anxiety. Four bowel movements. Four liter per minute via nasal cannula, 98% oxygen saturation. There is also some left leg numbness that he says is new. Please notify to tell us if it persists. There is no weakness associated with it he says. REVIEW OF SYSTEMS: No bleeding. No chest pain. OBJECTIVE VITAL SIGNS: Afebrile. Vital signs noted per electronic record. GENERAL: No acute distress, with some audible breathing noted from afar. HEENT: Normocephalic, atraumatic. NECK: Supple. Throat midline. LUNGS: Bilateral air entry is good, some wheezes heard, few rhonchi. CARDIOVASCULAR: S1 and S2. No murmurs, rubs, or gallops. ABDOMEN: Soft, nontender. EXTREMITIES: No clubbing. No cyanosis. There is stable 1-2+ edema. INTEGUMENT: No rash. No purpura. LABS: Potassium 2.5, BUN 30, and creatinine 0.7. White count 10, hematocrit 38, and platelets 177. TSH 0.19. IMPRESSION AND PLAN 1. Chronic obstructive pulmonary disease with exacerbation. 2. Very mild fluid overload. 3. Blood cancer, progressing. 4. Weakness. 5. Anxiety. Add Cymbalta for pain and anxiety. Continue this with trazodone at night. Check full thyroid function test given the low TSH. We will also assess if this is sick thyroid syndrome versus other condition. care worker consult made and they will discuss if the patient can get a reasonable rate for ambulate rides to his radiation. Afterwards, he may need to be considered for hospice after best possible intervention and treatment. Continue COPD meds and therapy. Job#: [id number] PAT
[2017-05-29 16:00] VITALS: BP 143/82
[2017-05-29] MEDS: TRAZODONE HCL 50 MG TAB PO SCH (21:06)
[2017-05-29] MEDS: LORAZEPAM 0.5 MG TAB PO PRN (21:14)
[2017-05-29] MEDS: HYDROCODONE/APAP 7.5MG-325MG 1 EA TAB PO PRN (21:18)
[2017-05-30] MEDS: IPRATROPIUM BROMIDE 0.02% 2.5 ML NEB NEB SCH ×6 (03:30→23:55)
[2017-05-30] MEDS: ALBUTEROL SULF 0.083% NEB SOLN 3 ML NEB NEB SCH ×6 (03:30→23:55)
[2017-05-30] MEDS: METHYLPREDNISOLONE SOD SUCC 125 MG/2ML VIAL IV SCH ×2 (05:19→13:25)
[2017-05-30] MEDS: ARFORMOTEROL TARTRATE INH SCH ×3 (06:00→16:42)
[2017-05-30 06:03] VITALS: BP 143/82
[2017-05-30] MEDS: BUDESONIDE 0.5MG/2 ML NEB NEB SCH ×2 (07:15→20:15)
[2017-05-30 07:35] LABS: THYROID STIMULATING HORMONE 0.176 uIU/mL (0.350-4.940)
[2017-05-30 08:16] VITALS: BP 135/75
[2017-05-30] MEDS: APIXAB 2.5 MG TABLET PO SCH ×2 (08:28→16:42)
[2017-05-30] MEDS: DULOXETINE HCL 30 MG DELAYED RELEASE PO SCH (08:28)
[2017-05-30] MEDS: FUROSEMIDE 40 MG TAB PO SCH ×2 (08:28→16:42)
[2017-05-30] MEDS: AMLODIPINE BESYLATE 10 MG TAB PO SCH ×2 (08:28→16:42)
[2017-05-30] MEDS: LEVOFLOXACIN 500MG/D5W 100ML 100 ML IV SCH (08:28)
[2017-05-30] MEDS: THEOPHYLLINE 200 MG TABCR PO SCH (08:28)
[2017-05-30] MEDS: POTASSIUM CHLORIDE 10 MEQ TABCR PO SCH (08:28)
[2017-05-30] MEDS: PREGABALIN 75 MG CAP PO SCH ×2 (08:28→20:07)
[2017-05-30] MEDS: SERTRALINE HCL 50 MG TAB PO SCH (08:29)
[2017-05-30] MEDS: METOPROLOL SUCCINATE 25 MG TAB XL PO SCH (08:29)
[2017-05-30 12:00] VITALS: BP 113/60
--- NOTE | 2017-05-30 13:53 | Progress Note ---
DATE: May 30, 2017 PULMONARY MEDICINE PROGRESS NOTE SUBJECTIVE: Mr. Palomares was seen and examined at bedside. He continues to have a lot of weakness. He is feeling slightly more short of breath today compared to yesterday. He did talk to social workers. Patient is eating reasonable amounts. REVIEW OF SYSTEMS: No headache. No rash. OBJECTIVE VITAL SIGNS: Afebrile. Vital signs noted per electronic record. GENERAL: No acute distress, alert and mildly anxious on my exam. HEENT: Normocephalic, atraumatic. NECK: Supple. Throat midline. LUNGS: Bilateral air entry, a few wheezes and a few rhonchi. CARDIOVASCULAR: S1 and S2. No murmurs, rubs, or gallops. ABDOMEN: Soft, nontender. EXTREMITIES: No clubbing. No cyanosis. There is 1 to 2+ edema. INTEGUMENT: No rash. No purpura. IMPRESSION AND PLAN 1. Chronic obstructive pulmonary disease with exacerbation. 2. Weakness. 3. Lung cancer, progressing. 4. Poor social situation. 5. Asthma versus asthma-like condition. Continue steroids at this time. Will start to wean steroids. Bronchodilators. I talked to social workers about the patient needing transportation to his radiation treatments so he can get control of this lung cancer. Continue theophylline for now. Will follow along closely. Job#: [id number]
[2017-05-30] MEDS: LORAZEPAM 0.5 MG TAB PO PRN ×2 (15:05→23:00)
[2017-05-30 16:27] VITALS: BP 127/66
[2017-05-30 20:00] VITALS: BP 134/64
[2017-05-30] MEDS: TRAZODONE HCL 50 MG TAB PO SCH (20:07)
[2017-05-30] MEDS: HYDROCODONE/APAP 7.5MG-325MG 1 EA TAB PO PRN (20:08)
[2017-05-31] VITALS (7 sets, daily range): BP systolic 134–148; BP diastolic 60–73
[2017-05-31] MEDS: IPRATROPIUM BROMIDE 0.02% 2.5 ML NEB NEB SCH ×6 (00:15→20:05)
[2017-05-31] MEDS: ALBUTEROL SULF 0.083% NEB SOLN 3 ML NEB NEB SCH ×6 (00:15→20:05)
[2017-05-31] MEDS: HYDROCODONE/APAP 7.5MG-325MG 1 EA TAB PO PRN ×3 (02:00→20:38)
[2017-05-31] MEDS: ARFORMOTEROL TARTRATE INH SCH ×3 (06:00→15:56)
[2017-05-31] MEDS: LORAZEPAM 0.5 MG TAB PO PRN ×2 (06:14→20:38)
[2017-05-31] MEDS: BUDESONIDE 0.5MG/2 ML NEB NEB SCH ×2 (07:00→20:05)
[2017-05-31] MEDS: FUROSEMIDE 40 MG TAB PO SCH ×2 (09:01→16:13)
[2017-05-31] MEDS: LEVOFLOXACIN 500MG/D5W 100ML 100 ML IV SCH (09:01)
[2017-05-31] MEDS: AMLODIPINE BESYLATE 10 MG TAB PO SCH ×2 (09:01→16:13)
[2017-05-31] MEDS: PREGABALIN 75 MG CAP PO SCH ×2 (09:01→20:38)
[2017-05-31] MEDS: METOPROLOL SUCCINATE 25 MG TAB XL PO SCH (09:01)
[2017-05-31] MEDS: THEOPHYLLINE 200 MG TABCR PO SCH (09:01)
[2017-05-31] MEDS: DULOXETINE HCL 30 MG DELAYED RELEASE PO SCH (09:02)
[2017-05-31] MEDS: SERTRALINE HCL 50 MG TAB PO SCH (09:02)
[2017-05-31] MEDS: APIXAB 2.5 MG TABLET PO SCH ×2 (09:02→16:13)
[2017-05-31] MEDS: POTASSIUM CHLORIDE 10 MEQ TABCR PO SCH (09:02)
[2017-05-31] MEDS: PREDNISONE 20 MG TAB PO SCH (09:02)
--- NOTE | 2017-05-31 12:59 | Progress Note ---
DATE: May 31, 2017 PULMONARY MEDICINE PROGRESS NOTE SUBJECTIVE: Mr. Palomares was seen and examined at bedside. Still some shortness of breath, slowly better than admit, however. Has 97% oxygen saturation, 4 L per minute nasal cannula intake. He is eating. He had 2 bowel movements. REVIEW OF SYSTEMS: No headache, no rash. OBJECTIVE VITAL SIGNS: Currently afebrile. Vital signs noted per record. GENERAL: Mildly anxious. Mild increased work of breathing and recruitment of muscles at rest. LUNGS: Bilateral air entry, mild to moderate wheezes, a few rhonchi. IMPRESSION AND PLAN 1. Chronic obstructive pulmonary disease with exacerbation. 2. Additional asthma versus asthma-like syndrome and elevated IgE level. 3. Weakness. 4. Lung cancer, progressing. 5. Anxiety. Continue current treatment at this time. Patient needs continued steroids. Bronchodilators ongoing. Mobilize the patient as much as possible. Still recommend social workers to try to get the patient transportation for his emergency lung cancer therapy and even his PET scan later. Job#: [id number]
[2017-05-31] MEDS: TRAZODONE HCL 50 MG TAB PO SCH (20:38)
[2017-06-01] VITALS: BP 143/74
[2017-06-01] MEDS: IPRATROPIUM BROMIDE 0.02% 2.5 ML NEB NEB SCH ×3 (03:45→14:58)
[2017-06-01] MEDS: ALBUTEROL SULF 0.083% NEB SOLN 3 ML NEB NEB SCH ×4 (03:45→14:57)
[2017-06-01 04:00] VITALS: BP 127/59
[2017-06-01] MEDS: ARFORMOTEROL TARTRATE INH SCH ×3 (05:31→16:12)
[2017-06-01 06:00] LABS: BASOPHILS % 0.1 % (0.0-1.0); HEMATOCRIT 33.8 % (38.2-49.6); HEMOGLOBIN 10.5 g/dL (14.0-18.0); LYMPHOCYTES # (AUTO) 0.9 (1.0-3.2); LYMPHOCYTES % 9.6 % (18.0-39.1); MEAN CORPUSCULAR HEMOGLOBIN 27.9 pg (28-32); MEAN CORPUSCULAR HGB CONC 31.1 g/dL (31-35); MEAN CORPUSCULAR VOLUME 89.9 fL (81-99); MONOCYTES # (AUTO) 0.8 (0.2-0.8); NEUTROPHILS # (AUTO) 7.8 (2.1-6.9); NEUTROPHILS % 79.4 % (38.7-80.0); PLATELET COUNT 124 x10e3/uL (140-360); RED BLOOD COUNT 3.76 x10e6/uL (4.3-5.7); RED CELL DISTRIBUTION WIDTH 17.2 % (11.7-14.4)
[2017-06-01 06:27] LABS: BLOOD UREA NITROGEN 37 mg/dL (7-26); BUN/CREATININE RATIO 51 (6-25); CALCIUM 8.2 mg/dL (8.4-10.2); CARBON DIOXIDE 34 mmol/L (22-29); CHLORIDE 98 mmol/L (98-107); CREATININE, SERUM 0.73 mg/dL (0.72-1.25); EST GLOMERULAR FILTRATION RATE > 60 ML/MIN (60-); GLUCOSE 116 mg/dL (74-118); SODIUM 141 mmol/L (136-145)
[2017-06-01] MEDS: BUDESONIDE 0.5MG/2 ML NEB NEB SCH (07:30)
[2017-06-01 08:08] VITALS: BP 135/88
[2017-06-01 09:12] VITALS: BP 135/88
[2017-06-01] MEDS: AMLODIPINE BESYLATE 10 MG TAB PO SCH ×2 (09:12→16:12)
[2017-06-01] MEDS: LEVOFLOXACIN 500MG/D5W 100ML 100 ML IV SCH (09:12)
[2017-06-01] MEDS: SERTRALINE HCL 50 MG TAB PO SCH (09:12)
[2017-06-01] MEDS: THEOPHYLLINE 200 MG TABCR PO SCH (09:12)
[2017-06-01] MEDS: POTASSIUM CHLORIDE 10 MEQ TABCR PO SCH (09:12)
[2017-06-01] MEDS: DULOXETINE HCL 30 MG DELAYED RELEASE PO SCH (09:12)
[2017-06-01] MEDS: PREDNISONE 20 MG TAB PO SCH (09:12)
[2017-06-01] MEDS: METOPROLOL SUCCINATE 25 MG TAB XL PO SCH (09:12)
[2017-06-01] MEDS: PREGABALIN 75 MG CAP PO SCH (09:12)
[2017-06-01] MEDS: APIXAB 2.5 MG TABLET PO SCH (09:12)
[2017-06-01] MEDS: FUROSEMIDE 40 MG TAB PO SCH ×2 (09:12→16:56)
[2017-06-01] MEDS: HYDROCODONE/APAP 7.5MG-325MG 1 EA TAB PO PRN ×2 (09:20→16:56)
[2017-06-01] MEDS: LORAZEPAM 0.5 MG TAB PO PRN ×2 (10:55→16:56)
[2017-06-01 12:16] VITALS: BP 102/70
--- NOTE | 2017-06-01 14:24 | Consultation ---
DATE OF CONSULTATION: June 01, 2017 DATE OF : 1940 REASON FOR CONSULTATION: Atrial fibrillation. HPI: This is a 77-year-old male with history of COPD on home oxygen, hypertension, chronic AFib, lung cancer diagnosed in May 2016, BPH, degenerative joint disease, and BRITTANY. Patient came to [facility] ER with complaints of shortness of breath for several days, apparently was not able to walk more than 10 feet. Patient was found in COPD exacerbation, has been on steroids and inhalers therapy. Cardiology consulted for patient's chronic AFib. Patient is on beta-kevin and oral anticoagulation therapy and tolerating regimen. Patient is seen in room, in no acute distress. States his shortness of breath is somewhat better compared to on admission. Denies any chest pains. PAST MEDICAL HISTORY: COPD, hypertension, chronic AFib, lung cancer, renal artery stent, BPH, BRITTANY, rheumatoid arthritis, and degenerative joint disease. 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 Ex-smoker, smoked from the age of 13 to 54, 2 packs a day. Denies any alcohol use and no drug use. PAST SURGICAL HISTORY: Appendectomy, bilateral knee repairs, cervical laminectomy, bilateral cataracts, and right renal stent. FAMILY HISTORY: Mother at age 88 apparently with stroke. Father at the age of 58 of stomach cancer. ALLERGIES: NO KNOWN ALLERGIES. REVIEW OF SYSTEMS GENERAL: Denies any weight gain, weight loss. Positive for fatigue. Denies any fevers or chills. SKIN: Denies any rashes, sores, or moles. HEENT: No vision changes. No headaches. No trauma. Positive for blurry vision. Denies any ear discharge, earaches, tinnitus, vertigo. Positive for nasal stuffiness. Denies any epistaxis. No bleeding gums, hoarseness, sore throat, or swollen neck. CARDIAC: Denies any chest pains. Positive for dyspnea on exertion. No PND. Positive for orthopnea. Positive for lower extremity edema. RESPIRATORY: Positive for shortness of breath, wheezing, coughing, non-productive. GI: Denies any nausea, vomiting, diarrhea, any hemoptysis, melena, hematochezia. No abdominal pain. URINARY: Positive frequency and urgency. Denies any hematuria. VASCULAR: Positive for lower extremity edema. No claudication. MUSCULOSKELETAL: Positive for generalized joint pains and back pain. NEUROLOGIC: Reports left leg numbness times 3 months. Denies any weakness, paralysis, fainting, blackout, or seizures. ENDOCRINE: Denies any heat or cold intolerance, any polyuria, polydipsia, or polyphagia. PHYSICAL EXAMINATION VITAL SIGNS: Height 71 inches, weight 347 pounds, temperature 96, heart rate 99, respiratory rate 18, blood pressure is 135/88, 94% on 4 liters nasal cannula. GENERAL: Appears stated age, in no acute distress. SKIN: No rashes. Intermittent bruises in upper extremities. HEENT: Normocephalic. Pupils equal and reactive. Extraocular muscle intact. No JVD appreciated. No carotid bruit. Oral mucosa pink. HEART: Irregular rate, irregular rhythm. Soft systolic murmur. LUNGS: Positive wheezing. Crackles at the bases. Poor airway entry. ABDOMEN: Soft, nontender, and obese. No organomegaly noted. MUSCULOSKELETAL: Good muscle strength throughout. Lower extremity with chronic venous changes. VASCULAR: +2 radial pulses bilaterally and +1 bilateral lower extremity pulses. NEUROLOGIC: Cranial nerves II through XII seem intact. LABORATORY DATA: Initially WBC 16, hemoglobin 12, hematocrit 40, platelets 176. Chemistry; sodium 140, potassium 5.0, chloride 96, bicarb 32, BUN 37, creatinine 0.8, glucose 197. BNP 117. Troponin 0.014, 0.016, and 0.010. CT of the chest, no PE; however, increasing left upper lobe lung nodule and also increasing metastatic left mediastinal hilar adenopathy. EKG; AFib, atrial fibrillation, heart rate 98. IMPRESSION AND PLAN 1. Chronic obstructive pulmonary disease exacerbation. 2. Lung cancer with lymph node involvement. 3. Chronic atrial fibrillation. 4. Obesity. 5. Debility. PLAN 1. Patient presents with shortness of breath, COPD exacerbation, is receiving nebs and inhalers per pulmonary team. 2. Regarding his atrial fibrillation, we will continue beta-kevin therapy for rate control. His rate is largely controlled in 90s to low 100s. 3. Oral anticoagulation currently with Eliquis, we will increase it to 5 mg b.i.d. 4. PT and OT for muscle strengthening. Thank you very much for this consult. We will continue to see patient and adjust cardiac therapy as course dictates. Dictated by: Dank Guerin NP Job#: [id number] ARA
[2017-06-01 16:04] VITALS: BP 118/62
[2017-06-01] MEDS ORDERED: APIXAB 2.5 MG TABLET PO SCH (17:00)
--- NOTE | 2017-06-01 17:12 | Progress Note ---
DATE: June 01, 2017 PULMONARY MEDICINE PROGRESS NOTE SUBJECTIVE: Mr. Palomares was seen and examined at the bedside. He continues to have some steady progress. Fairly easily he gets short of breath though, especially with movements outside of the bed. The patient has agreed for further rehab at this point. REVIEW OF SYSTEMS: No nosebleeds, no double vision. OBJECTIVE VITAL SIGNS: Afebrile. Vital signs noted per electronic record. GENERAL: No acute distress, slightly anxious, sitting. HEENT: Normocephalic, atraumatic. NECK: Supple. Throat midline. LUNGS: Bilateral air entry, few wheezes, few rhonchi. CARDIOVASCULAR: S1 and S2, no murmurs, rubs or gallops. ABDOMEN: Soft and nontender, obese. EXTREMITIES: No clubbing, no cyanosis. There is 1+ to 2+ edema. INTEGUMENT: No rash, no purpura. LABORATORY DATA: White count 10, hematocrit 34, platelets 124,000. Chemistry was potassium 4.0, creatinine 0.7. Theophylline level came back at 7.6. IMPRESSION 1. Lung cancer, local regional as far as we know, left upper lobe. 2. Chronic obstructive pulmonary disease with exacerbation. 3. Asthma with asthma-like syndrome with exacerbation. 4. Anxiety. 5. Obesity. 6. Chronic respiratory failure. PLAN: Continue current therapy at this time. Slow improvement. He will still benefit from aggressive PT and OT. He has agreed for rehab facility and we will work with insurance to get him there. We also did some paperwork for PET scan as he tells me he was told that could be done tomorrow, although I am not sure about that. I did some paperwork and left it with rn field case manager. Job#: [id number]
--- NOTE | 2017-07-12 20:04 | Discharge Summary ---
CHIEF COMPLAINT: Shortness of breath. FINAL DIAGNOSES 1. Exacerbation of chronic obstructive pulmonary disease. 2. Carcinoma of the lung. 3. Debility. 4. Obesity. [facility] 69[facility]year[facility] with history of COPD, hypertension, chronic atrial fib, lung cancer and obesity presented here from [facility] regarding issues of shortness of breath. Underwent evaluation in the emergency room and noted to have a BP 169/74, temperature 96.4, pulse 107. Rhythm strip was showing irregular heart rate. Lungs were revealing bilateral wheezing. Studies and evaluation were conducted in the ER. The patient was admitted to facility for treatment regarding chronic obstructive pulmonary disease with exacerbation, acute renal failure, uncontrolled hypertension, chronic atrial fib, lung cancer and obesity. With his admission regarding his presentation of COPD, Dr. Montiel was asked to follow from a pulmonary standpoint and with his review his impression was chronic obstructive pulmonary disease with exacerbation. There is additional asthma versus asthma-like condition with exacerbation, lung cancer progressively spreading now with lymph nodes involvement, debility and weakness, rheumatoid arthritis, chronic respiratory failure on home noninvasive ventilation, obstructive sleep apnea. Recommend continued the steroids, continue bronchodilators and maintain theophylline. Level checks. Will be looking into his ability with social services counselor to obtain radiation therapy. Patient was admitted from the ER to the med surg floor on a cardiac diet. Was started on respiratory treatments. Home medications were continuing as well. He was put on levofloxacin 500 mg IV daily, receiving methylprednisolone 60 mg IV q.8 h. Laboratory studies were revealing stable electrolytes. Kidney functions: BUN 36, creatinine 0.86. Glucose 184. CBC stable. Patient continued to be resting comfortably and was in no acute distress. Medications were being adjusted as needed. His BUN improved to 30 with creatinine improved to 0.75. The respiratory treatments were continuing. Was still having issues with shortness of breath and wheezing. Discussions were being planned for SNF placement. EKGs were revealing issues with atrial fib. The patient was able to be released to the SNF facility on 06/01/17 in good condition. EKGs are showing atrial ablation with premature ventricular aberrantly conductive complexes. Nonspecific T-wave abnormality probable digitalis effect. Follow up with echocardiogram revealing ejection fraction of 50% to 55%. No evidence of pericardial effusion. The patient was released to [facility] for continuation of care. At that facility will continue on a full code status. Will continue on his current diet management. Was noted to be incontinent with bowel and bladder. Remains oriented to time, place and person. Maintain low-salt diet. I will be monitoring his condition at that facility routinely. Staff will be contacting me in my office as needed. Dictated By: RUPA Zuleta Job#: [id number]
== END 2017-06-01 18:20 | DRG 191 ==
LOC: ER 13:57 → ERHOLD 20:33 → MED/SURG2 21:55
DX: J44.1 Chronic obstructive pulmonary disease with (acute) exacerbation (principal); N17.9 Acute kidney failure, unspecified; J96.10 Chronic respiratory failure, unspecified whether with hypoxia or hypercapnia; Z99.81 Dependence on supplemental oxygen; C77.1 Secondary and unspecified malignant neoplasm of intrathoracic lymph nodes; Z68.42 Body mass index [BMI] 45.0-49.9, adult; J45.901 Unspecified asthma with (acute) exacerbation; C34.12 Malignant neoplasm of upper lobe, left bronchus or lung; I48.2 Chronic atrial fibrillation; E66.01 Morbid (severe) obesity due to excess calories; Z79.01 Long term (current) use of anticoagulants; Z87.891 Personal history of nicotine dependence; G47.33 Obstructive sleep apnea (adult) (pediatric); M06.9 Rheumatoid arthritis, unspecified; M19.90 Unspecified osteoarthritis, unspecified site; N40.0 Benign prostatic hyperplasia without lower urinary tract symptoms; F41.9 Anxiety disorder, unspecified; R53.81 Other malaise; I10 Essential (primary) hypertension
CPT/HCPCS: 36415; 71045; 71260; 80048; 80053; 80198; 81001; 82550; 82553; 83605; 83735; 83880; 84436; 84443; 84479; 84484; 85025; 85610; 85730; 87040; 87086; 87400; 93005; 93306; 94640; 97139; 99285; J1956; J2270; J2930; Q9967

== ENCOUNTER → 2017-06-08 | Outpatient (CLI) | payer OTHER ==
[~2017-06-08] MED LIST changes: +ATIVAN0.5 MG PO; +BROVANA15 MCG/2 M INH; +ELIQUIS PO; +KLOR-CON M1010 MEQ PO; +LASIX40 MG PO; +LYRICA75 MG PO; +NORVASC5 MG PO; +PREDNISONE10 MG PO; +SERTRALINE HCL25 MG PO; +THEOPHYLLINE A200 MG PO; +TOPROL XL50 MG PO
[2017-06-08 17:26] LABS: ANION GAP 13.5 mmol/L (8-16); BLOOD UREA NITROGEN 19 mg/dL (7-26); BUN/CREATININE RATIO 26 (6-25); CALCIUM 8.7 mg/dL (8.4-10.2); CARBON DIOXIDE 29 mmol/L (22-29); CHLORIDE 102 mmol/L (98-107); CREATININE, SERUM 0.72 mg/dL (0.72-1.25); EST GLOMERULAR FILTRATION RATE > 60 ML/MIN (60-); GLUCOSE 107 mg/dL (74-118); POTASSIUM 3.5 mmol/L (3.5-5.1); SODIUM 141 mmol/L (136-145)
[2017-06-08 17:38] LABS: BASOPHILS % 0.1 % (0.0-1.0); EOSINOPHILS # (AUTO) 0.1 (0.0-0.4); EOSINOPHILS % 1.7 % (0.0-6.0); HEMATOCRIT 33.8 % (38.2-49.6); HEMOGLOBIN 10.5 g/dL (14.0-18.0); LYMPHOCYTES # (AUTO) 1.7 (1.0-3.2); LYMPHOCYTES % 24.4 % (18.0-39.1); MEAN CORPUSCULAR HEMOGLOBIN 28.1 pg (28-32); MEAN CORPUSCULAR HGB CONC 31.1 g/dL (31-35); MEAN CORPUSCULAR VOLUME 90.4 fL (81-99); MONOCYTES # (AUTO) 0.8 (0.2-0.8); MONOCYTES % 10.7 % (4.4-11.3); NEUTROPHILS # (AUTO) 4.4 (2.1-6.9); NEUTROPHILS % 62.4 % (38.7-80.0); PLATELET COUNT 95 x10e3/uL (140-360); RED BLOOD COUNT 3.74 x10e6/uL (4.3-5.7); RED CELL DISTRIBUTION WIDTH 18.5 % (11.7-14.4)
== END ==
LOC: NPA 11:30
DX: Z02.89 Encounter for other administrative examinations (principal)
CPT/HCPCS: 36415; 80048; 85025

== ENCOUNTER → 2017-06-14 | Outpatient (CLI) | payer OTHER ==
[2017-06-14 18:15] LABS: ANION GAP 12.7 mmol/L (8-16); BLOOD UREA NITROGEN 15 mg/dL (7-26); BUN/CREATININE RATIO 21 (6-25); CALCIUM 8.9 mg/dL (8.4-10.2); CARBON DIOXIDE 30 mmol/L (22-29); CHLORIDE 101 mmol/L (98-107); CREATININE, SERUM 0.72 mg/dL (0.72-1.25); EST GLOMERULAR FILTRATION RATE > 60 ML/MIN (60-); GLUCOSE 109 mg/dL (74-118); SODIUM 141 mmol/L (136-145)
[2017-06-14 18:16] LABS: POTASSIUM 2.7 mmol/L (3.5-5.1)
[2017-06-14 18:18] LABS: BASOPHILS % 0.2 % (0.0-1.0); EOSINOPHILS # (AUTO) 0.2 (0.0-0.4); EOSINOPHILS % 3.8 % (0.0-6.0); HEMATOCRIT 34.9 % (38.2-49.6); LYMPHOCYTES % 19.4 % (18.0-39.1); MEAN CORPUSCULAR HEMOGLOBIN 28.1 pg (28-32); MEAN CORPUSCULAR HGB CONC 31.5 g/dL (31-35); MONOCYTES # (AUTO) 0.7 (0.2-0.8); MONOCYTES % 13.3 % (4.4-11.3); NEUTROPHILS # (AUTO) 3.3 (2.1-6.9); NEUTROPHILS % 62.5 % (38.7-80.0); PLATELET COUNT 110 x10e3/uL (140-360); RED BLOOD COUNT 3.92 x10e6/uL (4.3-5.7); RED CELL DISTRIBUTION WIDTH 17.6 % (11.7-14.4)
== END ==
LOC: NPA 15:22
DX: Z02.89 Encounter for other administrative examinations (principal)
CPT/HCPCS: 36415; 80048; 85025

== ENCOUNTER 2017-06-15 13:22 | Emergency (ER) | payer MEDICARE, BC ==
[~2017-06-15] VITALS: Ht 180.3 cm; Wt 157.4 kg
--- OUTSIDE RECORDS SUMMARY | 2017-06-15 13:24 | XMS REPORT | Clinical Summary ---
Author Author [facility] Organization [facility] Address Unknown Phone Unavailable Care Team Providers Care Cafeteria Table Attendant Name Role Phone Asked, Pcp PCP Unavailable Allergies No Known Allergies Current Medications No known medications Active Problems No known active problems Encounters Date Type Specialty Care Team Description 05/18/2017 Office Visit Orthopedic Surgery Stuart Templeton, Closed displaced fracture MD of neck of right radius, initial encounter (Primary Dx) 05/18/2017 Orders Only Orthopedic Surgery Stuart Templeton, Pain of right hand MD (Primary Dx) after 06/14/2016 Social History Tobacco Use Types Packs/Day Years Used Date Current Every Day Smoker Cigarettes Alcohol Use Drinks/Week oz/Week Comments Yes Sex Assigned at Date Recorded Not on file Last Filed Vital Signs Vital Sign Reading Time Taken Blood Pressure 147/86 05/18/2017 11:16 AM [employer] Pulse 87 05/18/2017 11:16 AM [employer] Temperature - - Respiratory Rate - - Oxygen Saturation - - Inhaled Oxygen - - Concentration Weight - - Height - - Body Mass Index - - Plan of Treatment Health Maintenance Due Date Last Done Comments ZOSTER VACCINE 1999 PNEUMOCOCCAL 01/19/2004 POLYSACCHARIDE VACCINE AGE 65 AND OVER PNEUMOCOCCAL-13 01/19/2004 INFLUENZA VACCINE 11/29/2016 Results * XR Elbow 3+ Vw Right (05/18/2017 11:32 AM) Specimen Performing Laboratory [facility] [address] [place] [address] Narrative Xrays: The x-rays were ordered and personally reviewed by me. 3 views of the right elbow Reason for exam: right elbow pain Impression: Right radial neck fracture with mild displacement after 06/14/2016 Insurance Payer Benefit Subscriber ID Type Phone Address Plan / Group MEDICARE MEDICARE xxxxxxxxxx Medicare [place], [place] PART A AND B BCBS BCBS xxxxxxxxxxxx PPO CHOICE PPO/BASIL VOGEL PPO Home: A[place] [address]. [facility] [place] [phone]
--- OUTSIDE RECORDS SUMMARY | 2017-06-15 13:24 | XMS REPORT | Continuity of Care Document ---
Author Author [facility] Organization [facility] Address [address] [place] [address] Phone Unavailable Care Team Providers Care Insole Tape Stitcher Uco Name Role Phone RODRI WINCHESTER MD PCP Insurance Providers Guarantor Zack Palomares Address [address] [place] [address] Email [email or web address] Policy Number [id number] Subscriber's Name Zack Palomares Relationship 18 Self / Same As Patient Group Number [id number] Group Name [employer] Effective Date 16 Payer Medicare A & B Policy Number [id number] Subscriber's Name Zack Palomares Relationship 18 Self / Same As Patient Group Number [id number] Group Name RETIRED Effective Date 03 Advance Directives Directive Response Recorded Date/Time Does the patient have an advance directive? No 05/27/17 10:00pm If yes, is advance directive on file with [facility]? No 05/27/17 10:00pm If not on file with [facility] will patient provide a copy? Yes 05/27/17 10:00pm Do you have a Directive to Physician? No 05/27/17 4:11pm Do you have a Medical Power of Planning Director? No 05/27/17 4:11pm Do you have an out of hospital Do Not Resuscitate Order? No 05/27/17 4:11pm Do you have any special needs we should be aware of? No 05/27/17 4:11pm Do you have a support person here with you today? Yes 05/27/17 4:11pm Did patient receive Notice of Privacy Practices? Yes 05/27/17 4:11pm Did patient receive patient rights and responsibilities? Yes 05/27/17 4:11pm Problems Medical Problem Onset Date Status Acute renal failure (ARF) Unknown Bronchitis Unknown COPD exacerbation Unknown Dehydration Unknown Hypokalemia Unknown Lung cancer Unknown Vomiting and diarrhea Unknown Medications Current Home Medications Medication Dose Units Route Directions Days Qty Instructions Start Date Amlodipine Besylate (Norvasc) 5 Mg Tab 10 Mg Oral Twice A Day 30 Tab Arformoterol Tartrate (Brovana) 15 Mcg/2 Ml Nebu 2 Ml Inhalation Every 6 Hours While Awake Budesonide 0.5 Mg/2 Ml Ampul.neb 2 Ml Nebullizer Every 12 Hours Eliquis 2.5 Mg Oral Twice A Day Furosemide (Lasix) 40 Mg Tablet 40 Mg Oral Twice A Day 30 Tab Ipratropium Meredosia 0.2 Mg/1 Ml Solution 5 Ml Nebullizer Every 6 Hours Lorazepam (Ativan*) 0.5 Mg Tablet 0.5 Mg Oral Three Times A Day as needed for Anxiety 60 Tab Metoprolol Succinate (Toprol Xl) 50 Mg Tab.er.24h 75 Mg Oral Daily 30 Tab Potassium Chloride (Klor-Con M10) 10 Meq Tab.er.prt 1 Tab Oral Daily Prednisone 10 Mg Tab 10 Mg Oral Daily Pregabalin (Lyrica) 75 Mg Cap 150 Mg Oral Every 12 Hours 30 Cap Sertraline Hcl 25 Mg Tablet 25 Mg Oral Daily Theophylline Anhydrous 200 Mg Tab.er.12h 400 Mg Oral Daily 30 Tab Trazodone Hcl 100 Mg Tablet 100 Mg Oral Bedtime Past Home Medications Medication Directions Ordered Status Acetaminophen With Codeine (Tylenol With Codeine #3 Tablet) 1 Each Tablet, 300 Mg Oral Every 4 Hours as needed for Pain Discontinued Albuterol Sulf (Albuterol Sulfate) 4 Mg Tab, 3 Ml As Needed Discontinued Albuterol Sulfate (Proair Hfa Inhaler*) 8.5 Gm Inh, 1 Inh Every 4 Hours Discontinued Albuterol Sulfate 0.63 Mg/3 Ml Vial.neb, 1 Inh Inhalation Three Times A Day Discontinued Albuterol Sulfate (Proair Hfa Inhaler*) 8.5 Gm Inh, Discontinued Albuterol/Ipratropium (Combivent) 14.7 Gm Aero, 2 Inh Inhalation Twice A Day Discontinued Amlodipine Bes/Olmesartan Med (Corwin 10-40 Mg Tablet) 1 Each Tablet, Discontinued Amlodipine Besylate 10 Mg Tablet, 5 Mg Oral Daily Discontinued Arformoterol Tartrate (Brovana) 15 Mcg/2 Ml Nebu, Discontinued Arformoterol Tartrate (Brovana) 15 Mcg/2 Ml Nebu, Discontinued Atorvastatin Calcium 20 Mg Tablet, 20 Mg Oral Today At 9:00PM Discontinued Budesonide 0.5 Mg/2 Ml Ampul.neb, 2 Ml Nebullizer Every 12 Hours Discontinued Clonidine Hcl 0.1 Mg Tablet, 1 Tab Oral Every 8 Hours as needed for Elevated Blood Pressure Discontinued Diltiazem Hcl 30 Mg Tablet, 30 Mg Oral Three Times A Day Discontinued Eszopiclone (Lunesta) 3 Mg Tablet, Discontinued Ferrous Sulfate 325 Mg Tablet.dr, 325 Mg Oral Daily Discontinued Fluconazole 100 Mg Tablet, 100 Mg Oral Daily Discontinued Fluticasone/Salmeterol (Advair 250-50 Diskus) 1 Each Disk.w.dev, Discontinued Furosemide 40 Mg Tablet, 40 Mg Oral Daily Discontinued Hydrochlorothiazide 25 Mg Tablet, 25 Mg Oral Daily Discontinued Hydrochlorothiazide 25 Mg Tablet, 25 Mg Oral Twice A Day Discontinued Hydrocodone Bit/Acetaminophen (Palmetto 5-325 Tablet) 1 Each Tablet, 1 Each Oral Every 6 Hours as needed for Pa Discontinued Hydrocodone Bit/Acetaminophen (Hydrocodone-Apap 10-325 Mg Tab) 1 Each Tablet, 1 Tab Oral Three Times A Day as needed for Pain Discontinued Ipratropium Meredosia 0.2 Mg/1 Ml Solution, 2.5 Ml Nebullizer As Needed Discontinued Ipratropium Meredosia (Atrovent 0.02% Neb) 2.5 Ml Soln, Discontinued Levofloxacin (Levaquin) 500 Mg Tablet, Discontinued Lorazepam 0.5 Mg Tablet, 0.5 Mg Oral Twice A Day as needed for Anxiety Discontinued Meclizine Hcl (Antivert) 25 Mg Tablet, 25 Mg Oral Three Times A Day Discontinued Metoprolol Succinate 50 Mg Tab.er.24h, 50 Mg Oral Daily Discontinued Metoprolol Succinate Unknown Strength Tab.sr.24h, Unknown Dose Discontinued Montelukast Sodium (Singulair) 10 Mg Tablet, 10 Mg Oral Bedtime Discontinued Morphine Sulfate (Ms Contin) 15 Mg Tablet.er, 15 Mg Oral Twice A Day Discontinued Morphine Sulfate 30 Mg Tablet, Discontinued Nitrofurantoin Macrocrystal (Macrodantin) 100 Mg Capsule, 100 Mg Oral Twice A Day Discontinued Pantoprazole Sodium (Protonix) 40 Mg Tablet.dr, 40 Mg Oral Twice A Day Discontinued Polyethylene Glycol 3350 (Miralax) 17 Gm Powd.pack, 17 Gm Oral Daily Discontinued Potassium Chloride 20 Meq Tab.er.prt, 20 Meq Oral Daily Discontinued Prednisone 5 Mg Tablet, 10 Mg Oral Daily Discontinued Risperidone 0.5 Mg Tablet, 0.5 Mg Oral Bedtime Discontinued Tamsulosin Hcl (Flomax*) 0.4 Mg Cap, 0.4 Mg Oral Bedtime Discontinued Tamsulosin Hcl (Flomax*) 0.4 Mg Cap, 0.4 Mg Oral Daily Discontinued Tramadol Hcl (Ultram) 50 Mg Tablet, 50 Mg Oral Every 8 Hours as needed for Pain Discontinued Trazodone Hcl 50 Mg Tablet, 25 Mg Oral Daily Discontinued Trazodone Hcl 100 Mg Tablet, 100 Mg Oral Bedtime Discontinued Trazodone Hcl 50 Mg Tablet, 50 Mg Oral Daily Discontinued Verapamil Unknown Strength , Unknown Dose Discontinued Zolpidem Tartrate (Ambien) 5 Mg Tablet, 5 Mg Oral Bedtime as needed for Sleep Discontinued Social History Social History Problem Response Recorded Date/Time Onset Date Status Hx Psychiatric Problems No 05/27/2017 10:00pm Not Applicable Not Applicable Hx Eating Disorder No 05/27/2017 10:00pm Not Applicable Not Applicable Hx Substance Use Disorder No 05/27/2017 10:00pm Not Applicable Not Applicable Hx Depression No 05/27/2017 10:00pm Not Applicable Not Applicable Hx Alcohol Use No 05/27/2017 10:00pm Not Applicable Not Applicable Hx Substance Use Treatment No 05/27/2017 10:00pm Not Applicable Not Applicable Hx Physical Abuse No 05/27/2017 10:00pm Not Applicable Not Applicable Smoking Status Start Date Stop Date Former smoker Hospital Discharge Instructions No hospital discharge instruction information available. Plan of Care Discharge Date 06/01/17 6:20pm Disposition TRANSFER [facility] Prescriptions See Medication Section Functional Status Query Response Date Recorded FUNCTIONAL STATUS . May 29, 2017 2:05pm Assistive Devices None May 27, 2017 10:15pm Ambulation Ability Minimum Assistance May 27, 2017 10:15pm Toileting Ability Maximum Assistance June 01, 2017 5:44pm Allergies, Adverse Reactions, Alerts No known allergies. Immunizations No immunization information available. Vital Signs Acute Vital Signs Vital Response Date/Time Temperature (Fahrenheit) 97.3 degrees F (97.6 - 99.5) 06/01/2017 4:04pm Pulse Pulse Rate (adult) 103 bpm (60 - 90) 06/01/2017 4:04pm Respiratory Rate 20 bpm (12 - 24) 06/01/2017 4:04pm Blood Pressure 118/62 mm Hg 06/01/2017 4:04pm Height 5 ft 11 in 05/27/2017 2:18pm Weight 347.56 lb 05/31/2017 8:01am Body Mass Index 48.5 kg/m^2 05/31/2017 8:01am Results Laboratory Results Test Name Result Units Flags Reference Collection Date/Time Result Date/ Time Comments D-Dimer Quantitative (PE/DVT) 1.10 ug/mLFEU H 0.00-0.45 11/22/2016 12: 10pm 11/22/2016 1:35pm Bedside Glucose 109 mg/dL 70-120 12/04/2016 7:44pm 12/04/2016 8:30pm Meter ID: [id number] Myelocytes % 1 % H 0-0 04/20/2017 5:40am 04/20/2017 8:10am Reactive Lymphocytes 2 04/20/2017 5:40am 04/20/2017 8:10am Anisocytosis SLIGHT 04/20/2017 5:40am 04/20/2017 8:10am [place] Bodies FEW 04/20/2017 5:40am 04/20/2017 8:10am Phosphorus Level 3.2 MG/DL 2.3-4.7 04/20/2017 5:40am 04/20/2017 6:59am Arterial Blood pH 7.44 H 7.31-7.41 04/19/2017 1:32pm 04/19/2017 2: 55pm Arterial Blood Partial Pressure CO2 52 mmHg H 41-51 04/19/2017 1:32pm 2:55pm Arterial Blood Partial Pressure O2 103 mmHg 80-105 04/19/2017 1:32pm 2:55pm Arterial Blood HCO3 35 mmol/L H 23-28 04/19/2017 1:32pm 04/19/2017 2: 55pm Arterial Blood Base Excess 11.0 mmol/L H -2 - 3 04/19/2017 1:32pm 2016 2:55pm Arterial Blood Oxygen Saturation 98.0 % 95-98 04/19/2017 1:32p 2016 2:55pm White Blood Count 9.80 x10e3/uL 4.8-10.8 06/01/2017 5:41am 06/01/2017 6 :02am Red Blood Count 3.76 x10e6/uL L 4.3-5.7 06/01/2017 5:41am 06/01/2017 6: 02am Hemoglobin 10.5 g/dL L 14.0-18.0 06/01/2017 5:41am 06/01/2017 6:02am Hematocrit 33.8 % L 38.2-49.6 06/01/2017 5:41am 06/01/2017 6:02am Mean Corpuscular Volume 89.9 fL 81-99 06/01/2017 5:41am 06/01/2017 6: 02am Mean Corpuscular Hemoglobin 27.9 pg L 28-32 06/01/2017 5:41am 2017 6:02am Mean Corpuscular Hemoglobin Concent 31.1 g/dL 31-35 06/01/2017 5:41am 06/01/2017 6:02am Red Cell Distribution Width 17.2 % H 11.7-14.4 06/01/2017 5:41am 2017 6:02am Platelet Count 124 x10e3/uL L 140-360 06/01/2017 5:41am 06/01/2017 6: 02am Neutrophils (%) (Auto) 79.4 % 38.7-80.0 06/01/2017 5:4106/01/2017 6: 02am Lymphocytes (%) (Auto) 9.6 % L 18.0-39.1 06/01/2017 5:41am 06/01/2017 6: 02am Monocytes (%) (Auto) 8.0 % 4.4-11.3 06/01/2017 5:4106/01/2017 6: 02am Eosinophils (%) (Auto) 0.0 % 0.0-6.0 06/01/2017 5:4106/01/2017 6: 02am Basophils (%) (Auto) 0.1 % 0.0-1.0 06/01/2017 5:4106/01/2017 6:02am IM GRANULOCYTES % 2.9 % H 0.0-1.0 06/01/2017 5:06/01/2017 6:02am Neutrophils # (Auto) 7.8 H 2.1-6.9 06/01/2017 5:06/01/2017 6: 02am Lymphocytes # (Auto) 0.9 L 1.0-3.2 06/01/2017 5:4106/01/2017 6: 02am Monocytes # (Auto) 0.8 0.2-0.8 06/01/2017 5:06/01/2017 6:02am Eosinophils # (Auto) 0.0 0.0-0.4 06/01/2017 5:4106/01/2017 6:02am Basophils # (Auto) 0.0 0.0-0.1 06/01/2017 5:06/01/2017 6:02am Absolute Immature Granulocyte (auto 0.28 x10e3/uL H 0-0.1 06/01/2017 5: 4106/01/2017 6:02am Differential Total Cells Counted 100 05/28/2017 6:45am 05/28/2017 12:28pm Neutrophils % (Manual) 83 % H 40-74 05/28/2017 6:45am 05/28/2017 12: 28pm Band Neutrophils % 11 % 05/28/2017 6:45am 05/28/2017 12:28pm Lymphocytes % (Manual) 4 % L 19-48 05/28/2017 6:45am 05/28/2017 12:28pm Monocytes % (Manual) 2 % L 3.4-9.0 05/28/2017 6:45am 05/28/2017 12:28pm Platelet Estimate ADEQUATE 05/28/2017 6:45am 05/28/2017 12:28pm Platelet Morphology Comment NORMAL 05/28/2017 6:45am 05/28/2017 12: 28pm Red Cell Morphology Comment NORMAL 05/28/2017 6:45am 05/28/2017 12: 28pm Prothrombin Time 14.7 seconds H 11.9-14.5 05/27/2017 8:25pm 05/27/2017 9 :25pm Prothromb Time International Ratio 1.09 05/27/2017 8:25pm 2017 9:25pm Oral Anticoagulant Therapy INR Values: 1. Low Intensity Therapy 1.5 - 2.0 2. Moderate Intensity Therapy 2.0 - 3.0 3. High Intensity Therapy(1) 2.5 - 3.5 4. High Intensity Therapy(2) 3.0 - 4.0 5. Panic Value INR > 5.0 Activated Partial Thromboplast Time 22.0 seconds L 23.8-35.5 05/27/2017 8 :25pm 05/27/2017 9:25pm Urine Color ORANGE H YELLOW 05/27/2017 2:12pm 05/27/2017 3:30pm Urine Clarity CLEAR CLEAR 05/27/2017 2:12pm 05/27/2017 3:30pm Urine Specific [place] 1.020 1.010-1.025 05/27/2017 2:12pm 2017 3:30pm Urine pH 5 5 - 7 05/27/2017 2:12pm 05/27/2017 3:30pm Urine Leukocyte Esterase NEGATIVE NEGATIVE 05/27/2017 2:12pm 2017 3:30pm Urine Nitrite POSITIVE H NEGATIVE 05/27/2017 2:12pm 05/27/2017 3:30pm Urine Protein 1+ H NEGATIVE 05/27/2017 2:12pm 05/27/2017 3:30pm Urine Glucose (UA) NEGATIVE NEGATIVE 05/27/2017 2:12pm 05/27/2017 3: 30pm Urine Ketones NEGATIVE NEGATIVE 05/27/2017 2:12pm 05/27/2017 3:30pm Urine Urobilinogen 8 mg/dL H 0.2 - 1 05/27/2017 2:12pm 05/27/2017 3: 30pm Urine Bilirubin 3+ H NEGATIVE 05/27/2017 2:12pm 05/27/2017 3:30pm Confirmatory test currently unavailable. False positive results may occur. Urine Blood NEGATIVE NEGATIVE 05/27/2017 2:12pm 05/27/2017 3:30pm Urine WBC 0-5 /HPF 0-5 05/27/2017 2:12pm 05/27/2017 4:07pm Urine RBC 0-5 /HPF 0-5 05/27/2017 2:12pm 05/27/2017 4:07pm Urine Bacteria FEW /HPF NONE 05/27/2017 2:12pm 05/27/2017 4:07pm Urine Epithelial Cells FEW /LPF NONE 05/27/2017 2:12pm 05/27/2017 4: 07pm Sodium Level 141 mmol/L 136-145 06/01/2017 5:41am 06/01/2017 6:32am Potassium Level 4.0 mmol/L 3.5-5.1 06/01/2017 5:41am 06/01/2017 6:32am Chloride Level 98 mmol/L 98-107 06/01/2017 5:41am 06/01/2017 6:32am Influenza Virus Types A,B Antigen NEGATIVE NEGATIVE 05/27/2017 8:25pm 05/27/2017 9:25pm Carbon Dioxide Level 34 mmol/L H 22-06/01/2017 5:41am 06/01/2017 6: 32am Anion Gap 13.0 mmol/L 8-16 06/01/2017 5:41am 06/01/2017 6:32am Blood Urea Nitrogen 37 mg/dL H 7-06/01/2017 5:41am 06/01/2017 6:32am Creatinine 0.73 mg/dL 0.72-1.25 06/01/2017 5:41am 06/01/2017 6:32am BUN/Creatinine Ratio 51 H 6-25 06/01/2017 5:41am 06/01/2017 6:32am Estimat Glomerular Filtration Rate > 60 ML/MIN 60- 06/01/2017 5:41am 6:32am Ranges were taken from the National Kidney Disease Education Program and the National Kid[employer] Foundation literature. Reference ranges: 60 or greater: Normal 16-59 (for 3 consecutive months): Chronic kidney disease 15 or less: Kidney failure Glucose Level 116 mg/dL 74-118 06/01/2017 5:41am 06/01/2017 6:32am Calcium Level 8.2 mg/dL L 8.4-10.2 06/01/2017 5:41am 06/01/2017 6:32am Lactic Acid Level 27.7 MG/DL H 4.5-19.8 05/27/2017 7:55pm 05/27/2017 8: 30pm Magnesium Level 2.4 MG/DL H 1.3-2.1 05/28/2017 6:45am 05/28/2017 7:24am Total Bilirubin 0.9 mg/dL 0.2-1.2 05/28/2017 6:45am 05/28/2017 7:24am Aspartate Amino Transf (AST/SGOT) 19 IU/L 5-34 05/28/2017 6:45am 2017 7:24am Alanine Aminotransferase (ALT/SGPT) 29 IU/L 0-55 05/28/2017 6:45am 7:24am Total Protein 6.5 g/dL 6.5-8.1 05/28/2017 6:45am 05/28/2017 7:24am Albumin 3.6 g/dL 3.5-5.0 05/28/2017 6:45am 05/28/2017 7:24am Globulin 2.9 g/dL 2.3-3.5 05/28/2017 6:45am 05/28/2017 7:24am Albumin/Globulin Ratio 1.2 0.8-2.0 05/28/2017 6:45am 05/28/2017 7: 24am Alkaline Phosphatase 63 IU/L 40-150 05/28/2017 6:45am 05/28/2017 7: 24am B-Type Natriuretic Peptide 117.0 pg/mL H 0-100 05/27/2017 7:55pm 2017 9:26pm Creatine Kinase 30 IU/L 30-200 05/28/2017 4:23am 05/28/2017 7:45am Creatine Kinase MB 2.30 ng/mL 0.00-5.00 05/28/2017 4:23am 05/28/2017 7: 45am Troponin I 0.014 ng/mL 0-0.300 05/28/2017 4:23am 05/28/2017 7:45am Free Thyroxine Index 2.0381 1.4-3.8 05/30/2017 6:07am 05/30/2017 7: 37am Thyroxine (T4) 5.47 ug/dL 4.5-10.9 05/30/2017 6:07am 05/30/2017 7:37am Triiodothyronine (T3) Uptake 37.26 % H 22.5-37.0 05/30/2017 6:07am 05/30 7:37am Thyroid Stimulating Hormone (TSH) 0.176 uIU/mL L 0.350-4.940 05/30/2017 6 :07am 05/30/2017 7:37am Theophylline Level 7.6 05/29/2017 5:00am 06/01/2017 10:26am 10.0 - 20.0 ug/mL Detection Limit=0.9 <0.9 indicates None Detected Testing performed by: [facility] [id number] Dir: José Miguel Wong MD Microbiology Results Procedure Source Organism/Result Collection Date/Time Result Date/Time Result Status Blood Culture Blood GRAM POSITIVE KWABENA 04/14/2017 5:46am 04/17/2017 1:21pm Final STAPHYLOCOCCUS SP COAG NEG 04/14/2017 5:46am 04/17/2017 1:21pm Final Body Fluid Culture Perineal Fluid GRAM POSITIVE KWABENA 04/14/2017 8:53pm 9:02am Final PROTEUS MIRABILIS 04/14/2017 8:53pm 04/18/2017 9:02am Final Blood Culture Blood NO GROWTH AFTER 72 HOURS 7:55pm 05/30/2017 8:11pm Preliminary Procedures Procedure Status Date Provider(s) EXCISION OF LEFT BREAST, PERCUTANEOUS APPROACH, DIAGNOSTIC Completed ELIAS CRISOSTOMO MD X-ray of chest, two views Active 11/22/16 ADDIS CONNOLLY MD Computed tomography of chest with contrast Active 11/22/[address] orbit/ear/fossa w/o dye Active 11/25/16 KHADRA FUENTES MD X-ray of chest, two views Active 11/27/16 NISHANT PUENTE MD Computed tomography of chest with contrast Active 05/27/17 AJYCE JOY [employer] Encounters Encounter Location Arrival/Admit Date Discharge/Depart Date Attending Provider Discharged Inpatient [facility] 05/27/17 8:33pm 06/01/17 6:20pm KHADRA FUENTES MD Discharged Inpatient [facility] 04/14/17 8:07am 04/20/17 8:15pm KHADRA FUENTES MD Discharged Inpatient [facility] 11/22/16 5:03pm 12/05/16 5:24pm KHADRA FUENTES MD
--- OUTSIDE RECORDS SUMMARY | 2017-06-15 13:24 | XMS REPORT ---
Author Author [facility] Address Unknown Phone Unavailable Care Team Providers Care Bonding Machine Tender Name Role Phone YASMANY GRIFFIN Unavailable Unavailable FUENTES, KHADRA Unavailable Unavailable Problems This patient has no known problems. Allergies, Adverse Reactions, Alerts This patient has no known allergies or adverse reactions. Medications This patient has no known medications. Results Test Description Test Time Test Comments Text Results Atomic Results Result Comments CT CHEST W [place] [address] Patient Name: NENO LAGUNAS MR #: [id number] : 1940 Age/Sex: 77/M Req # : [id number] Adm Physician: Ordered by: JAYCE JOY DEVELOPMENTAL MATHEMATICS PROFESSOR Report #: [id number] Location: ER Room/Bed: Procedure: [id number] CT/CT CHEST W Exam Date: Exam Time: REPORT STATUS: Signed EXAM: CT CHEST W DATE: 05/27/2017 2:27 PM INDICATION: S concern for PE, PMH: lung CA, SOB, , Tachycardia COMPARISON: 11/22/2016 TECHNIQUE: Multidetector CT scanning of the chest was performed. Coronal and sagittal multiplanar reformations were obtained. IV Contrast : 100 mL of Isovue-370 FINDINGS: Image quality is degraded by body habitus and motion artifact. Suboptimal contrast opacification of the pulmonary arterial system (HU 145) precludes evaluation for the exclusion of pulmonary embolism. Given this, no central/large main filling defect is seen. LUNGS AND PLEURA: Increased spiculated left upper lobe nodule, 2.0 x 1.7 cm (prior 1.5 x 1.2 cm). No effusion or pneumothorax. HEART, MEDIASTINUM, VESSELS: Stable heart size with coronary artery and aortic atherosclerotic disease. The main pulmonary artery is again enlarged, 3.7 cm. Increasing left mediastinal (AP window, prevascular) and hilar adenopathy. For example a prevascular node measures 2 cm, prior 0.7 cm, AP window node 1.5 cm, prior 1 cm, and left hilar node 1.2 cm, prior 0.7 cm. UPPER ABDOMEN: Grossly unremarkable MUSCULOSKELETAL: No suspicious bone lesions. IMPRESSION: 1. Suboptimal contrast bolus precludes evaluation for exclusion of pulmonary artery embolism. No large central/main pulmonary embolism is seen. 2. Increasing left upper lobe regulated lung nodule in keeping with known malignancy. 3. Increasing metastatic left mediastinal/hilar adenopathy. Signed by: Dr William Cruz MD on 05/27/2017 7:28 PM Dictated By: WILLIAM CRUZ MD 27 Transcribed By: SAURABH on 05/27/171927 COPY TO: JAYCE JOY NP CHEST SINGLE (PORTABLE) [place] [address] Patient Name: NENO LAGUNAS MR #: [id number] : 1940 Age/Sex: 77/M Req #: [id number] Adm Physician: Ordered by: JAYCE JOY DEVELOPMENTAL MATHEMATICS PROFESSOR Report #: [id number] Location: ER Room/Bed: Procedure: [id number] DX/CHEST SINGLE (PORTABLE) Exam Date: 05/27/17 Exam Time: 1440 REPORT STATUS: Signed EXAMINATION: CHEST SINGLE (PORTABLE) INDICATION: COMPARISON : Chest radiograph from 04/19/2017 FINDINGS: AP view TUBES and LINES: None. LUNGS: Lungs are well inflated. Lungs are clear. Bilateral interstitial edema. PLEURA: No pleural effusion or pneumothorax. HEART AND MEDIASTINUM: Mild enlargement of the cardiac silhouette. Tortuous thoracic aorta. BONES AND SOFT TISSUES: No acute osseous lesion. Soft tissues are unremarkable. UPPER ABDOMEN: No free air under the diaphragm. IMPRESSION: Bilateral interstitial edema. Signed by: Dr. Ambar Dwyer M.D. on 05/27/2017 3:21 PM Dictated By: AMBAR DWYER MD 1521 Transcribed By: SAURABH on 05/27/17 1521 COPY TO: JAYCE JOY NP CHEST SINGLE (PORTABLE) [place] [address] Patient Name: NENO LAGUNAS MR #: [id number] : 1940 Age/Sex: 77/M Req #: [id number] Adm Physician: KHADRA FUENTES MD Ordered by: REMBERTO GREWAL MD Report #: [id number] Location: [facility] Room/Bed: [facility] Procedure: [id number] DX/CHEST SINGLE (PORTABLE) Exam Date: 04/19/17 Exam Time: 1325 REPORT STATUS: Signed PROCEDURE: CHEST SINGLE (PORTABLE) 1312 hrs. COMPARISON: Chest x-ray 04/14/17. INDICATIONS: COPD, BRONCHITIS, SHORTNESS OF BREATH FINDINGS: LUNGS: There is a new band of subsegmental atelectasis in the right middle lobe. No consolidation of either lung. No soft tissue mass. The lungs are hyperinflated consistent with history of COPD. The pulmonary vascular markings are normal. PLEURA: No effusions or pneumothorax. HEART T MEDIASTINUM: The heart is top normal in size. Aorta is ectatic with calcifications of the arch. No hilar lymphadenopathy. BONES T SOFT TISSUES: No focal osseous lesions. CONCLUSION: New subsegmental atelectasis in the right middle lobe. No evidence of pulmonary infiltrate Dictated by: Padmini Dixon M.D. on 04/19/2017 at 13:56 Electronically approved by: Padmini Dixon M.D. on 04/19/2017 at 13: 56 Dictated By: PADMINI DIXON MD 1356 Transcribed By: REJI on 04/19/17 1356 COPY TO: REMBERTO GREWAL MD KNEE LEFT THREE VIEWS [place] [address] Patient Name: NENO LAGUNAS MR #: [id number] : 1940 Age/Sex: 77/M Req #: [id number] Adm Physician: KHADRA FUENTES MD Ordered by: RODRI WINCHESTER MD Report #: [id number] Location: MED/SURG2 Room/Bed: [facility] Procedure: [id number] DX/KNEE LEFT THREE VIEWS Exam Date: 04/16/17 Exam Time: 1550 REPORT STATUS: Signed Left knee - 3 views HISTORY: Pain. COMPARISON: None available. FINDINGS: Bones: Postoperative changes of left knee total arthroplasty. The femoral and tibial components are in proper position. No redding bone or hardware fracture is identified. No expansile lytic or sclerotic lesion. Joints: The joint spaces are well-maintained. No dislocation. Soft tissues: The soft tissues appear unremarkable. IMPRESSION: Left knee total arthroplasty. No acute fracture. Signed by: Dr. Steve Amador M.D. on 04/16/2017 4:17 PM Dictated By: STEVE AMADOR MD 16 Transcribed By: SAURABH on 04/16/171616 COPY TO: RODRI WINCHESTER MD SPINE CERVICAL AP LAT FLEX EXT [place] [address] Patient Name: NENO LAGUNAS MR #: [id number] : 1940 Age/Sex: 77/M Req #: [id number] Adm Physician: KHADRA FUENTES MD Ordered by: RODRI WINCHESTER MD Report #: [id number] Location: MED/SURG2 Room/Bed: [facility] Procedure: [id number] DX/SPINE CERVICAL AP LAT FLEX EXT Exam Date: 04/16/17 Exam Time: 1550 REPORT STATUS: Signed Cervical spine, complete. History: Pain. Comparison : None. Discussion: There is normal lordotic curvature of the cervical spine which is visualized on the lateral view from C1 through the top of C5. Degenerative changes are evidenced by anterior osteophytosis at multiple levels. Limited examination. No displaced fracture or dislocation. The vertebral bodies and intervertebral disk spaces are within normal limits. No evidence of lytic or sclerotic lesion. The paravertebral soft tissues are unremarkable. IMPRESSION: No acute radiographic abnormality. Degenerative changes. Signed by: Dr. Steve Amador M.D. on 4:19 PM Dictated By: STEVE AMADOR MD 18 Transcribed By: SAURABH on 04/16/171618 COPY TO: RODRI WINCHESTER MD CHEST SINGLE (PORTABLE) [place] [address] Patient Name: NENO LAGUNAS MR #: [id number] : 1940 Age/Sex: 77/M Req #: [id number] Adm Physician: Ordered by: XIN CHAWLA MD Report #: [id number] Location: ER Room/Bed: ___ Procedure: [id number] DX/CHEST SINGLE (PORTABLE) Exam Date: 04/14/17 Exam Time: 0630 REPORT STATUS: Signed CHEST SINGLE (PORTABLE), 04/14/2017 5:36 AM Technique: CHEST SINGLE (PORTABLE) Comparison: 11/28/2016 Clinical history: Shortness of breath Findings: Stable portable appearance of the heart, mediastinum, lungs and pleural spaces. Impression: Limited by and portable technique and soft tissue attenuation. No significant interval change. Signed by: Dr William Cruz MD on 04/14/2017 6:54 AM Dictated By: WILLIAM CRUZ MD 3 Transcribed By: SAURABH on 04/14/17653 COPY TO: XIN CHAWLA MD
[2017-06-15 13:44] LABS: BASOPHILS % 0.3 % (0.0-1.0); EOSINOPHILS # (AUTO) 0.2 (0.0-0.4); EOSINOPHILS % 4.1 % (0.0-6.0); HEMATOCRIT 36.5 % (38.2-49.6); HEMOGLOBIN 11.5 g/dL (14.0-18.0); LYMPHOCYTES # (AUTO) 1.3 (1.0-3.2); LYMPHOCYTES % 22.2 % (18.0-39.1); MEAN CORPUSCULAR HEMOGLOBIN 27.7 pg (28-32); MEAN CORPUSCULAR HGB CONC 31.5 g/dL (31-35); MONOCYTES # (AUTO) 0.9 (0.2-0.8); MONOCYTES % 15.7 % (4.4-11.3); NEUTROPHILS # (AUTO) 3.3 (2.1-6.9); NEUTROPHILS % 56.8 % (38.7-80.0); PLATELET COUNT 129 x10e3/uL (140-360); RED BLOOD COUNT 4.15 x10e6/uL (4.3-5.7); RED CELL DISTRIBUTION WIDTH 17.4 % (11.7-14.4)
[2017-06-15 13:58] LABS: ALANINE AMINOTRANSFERASE 11 IU/L (0-55); ALBUMIN 3.1 g/dL (3.5-5.0); ALBUMIN/GLOBULIN RATIO 0.8 (0.8-2.0); ALKALINE PHOSPHATASE 75 IU/L (40-150); ANION GAP 13.3 mmol/L (8-16); BLOOD UREA NITROGEN 14 mg/dL (7-26); BUN/CREATININE RATIO 17 (6-25); CARBON DIOXIDE 32 mmol/L (22-29); CHLORIDE 98 mmol/L (98-107); CREATINE KINASE 11 IU/L (30-200); CREATININE, SERUM 0.83 mg/dL (0.72-1.25); EST GLOMERULAR FILTRATION RATE > 60 ML/MIN (60-); GLUCOSE 161 mg/dL (74-118); POTASSIUM 3.3 mmol/L (3.5-5.1); SODIUM 140 mmol/L (136-145)
--- NOTE | 2017-06-15 14:47 | Diagnostic Imaging Report ---
PROCEDURE: A single AP view of the chest. COMPARISON: Patients [facility], CT, CT CHEST W, 05/27/2017, 17:39. Patients [facility], DX, CHEST SINGLE (PORTABLE), 05/27/2017, 14:41. INDICATIONS: SHORTNESS OF BREATH, LOW POTASSIUM FINDINGS: Lines/tubes: None. Lungs: The lungs are well inflated and grossly clear. There is no evidence of consolidation or pulmonary edema. Pleura: There is no pleural effusion or pneumothorax. Heart and mediastinum: Stable cardiomegaly. Mild central pulmonary venous congestion. Bones: No acute bony abnormality. IMPRESSION: 1. stable cardiomegaly, with mild central pulmonary venous congestion. No consolidation or effusion.. Regino Willams M.D. Dictated by: Regino Willams M.D. on 06/15/2017 at 14:47 Electronically approved by: Regino Willams M.D. on 06/15/2017 at 14:47
[2017-06-15] MEDS ORDERED: POTASSIUM CHLORIDE 20 MEQ TAB CR PO STA (14:51)
[2017-06-15 18:58] VITALS: BP 146/79
== END 2017-06-15 18:59 | disposition home or self-care (01) ==
LOC: ER 13:22
DX: E87.6 Hypokalemia (principal); I10 Essential (primary) hypertension; I48.91 Unspecified atrial fibrillation; J44.9 Chronic obstructive pulmonary disease, unspecified; Z85.118 Personal history of other malignant neoplasm of bronchus and lung
CPT/HCPCS: 36415; 71045; 80053; 82550; 82553; 84484; 85025; 93005; 99284